=== PATIENT | male | born 1965 | race Caucasian/White ===

== ENCOUNTER → 2018-08-01 | Outpatient (CLI) | payer OTHER ==
[~2018-08-01] MED LIST: ACYC800 PO; ALBU90OI; ALLO100 PO; ASPI325; ASPI325 PO; ASPI81EC; ATOR40TA; AZIT500 PO; BUME2 PO; CARV25 PO; CEPH500 PO; CHOL10002 PO; CODGUAEL PO; FURO40; FURO40 PO; GABA100; GABA300 PO; GLIP5 PO; HUMALIN N; HYDACE5 PO; Hair, Skin & N1 EACH PO; INSULANI; INSULANPEN SC; INSULIN REGULAR SC; IRON PO; LISI10; LISI20 PO; LISI5 PO; METF500; METF500 PO; METF500C; OXYC15ER PO; OXYC5 PO; PARI1 PO; POTA10T; POTA10T PO; PRAV20 PO; PRED20 PO; RAMI2.5; RANI150; ROSI4; SULTRIDS; SULTRIDS PO; TRADJENTA5 MG PO; [UNRECOGNIZED DRUG - OTHER]
== END | disposition home or self-care (01) ==
LOC: LAB EV 12:47 → LAB SHORT 12:47
DX: L03.032 Cellulitis of left toe (principal)
CPT/HCPCS: 87070; 87077; 87147; 87186; 87205

== ENCOUNTER 2018-11-06 08:28 | Day surgery (SDC) | payer OTHER ==
[~2018-11-06] VITALS: Ht 170.2 cm; Wt 183.0 kg
[~2018-11-06 08:28] MED LIST changes: +Ferrous Sulfat325 M2 PO; +TOUJEO SOL300 UNIT/1 SC
== END 2018-11-06 13:30 | disposition home or self-care (01) ==
LOC: MHTC 08:28
PROC: 0JH609Z Insertion of Cardiac Resynchronization Defibrillator Pulse Generator into Chest Subcutaneous Tissue and Fascia, Open Approach (ICD-10-PCS; principal; 2018-11-06)
PROC: 0JPT0PZ Removal of Cardiac Rhythm Related Device from Trunk Subcutaneous Tissue and Fascia, Open Approach (ICD-10-PCS; principal; 2018-11-06)
DX: Z45.02 Encounter for adjustment and management of automatic implantable cardiac defibrillator (principal); I51.9 Heart disease, unspecified; I42.0 Dilated cardiomyopathy; H52.03 Hypermetropia, bilateral; I12.9 Hypertensive chronic kidney disease with stage 1 through stage 4 chronic kidney disease, or unspecified chronic kidney disease; N18.9 Chronic kidney disease, unspecified; I44.7 Left bundle-branch block, unspecified; E66.01 Morbid (severe) obesity due to excess calories; E11.22 Type 2 diabetes mellitus with diabetic chronic kidney disease
CPT/HCPCS: 33264; 82947; 99152; 99153; C1781; C1882; J1644; J2250; J3010; J7030; J7040

== ENCOUNTER → 2019-05-22 | Outpatient (CLI) | payer OTHER ==
[2019-05-22 17:35] LABS: BASOPHILS ABSOLUTE AUTO 0.03 K/mm3 (0.00-0.23); BASOPHILS PERCENT AUTO 1 % (0-2); EOSINOPHILS PERCENT AUTO 4 % (0-6); Hemoglobin 11.4 g/dL (13.5-17.5); IMMATURE GRAN ABSOLUTE AUTO 0.02 K/mm3 (0.00-0.10); IMMATURE GRAN PERCENT AUTO 0 % (0-1); LYMPHOCYTES ABSOLUTE AUTO 1.29 K/mm3 (0.84-5.20); LYMPHOCYTES PERCENT AUTO 24 % (21-46); MONOCYTES ABSOLUTE AUTO 0.95 K/mm3 (0.16-1.47); MONOCYTES PERCENT AUTO 17 % (4-13); Mean Corpuscular HGB 30.2 pg (26.0-34.0); Mean Corpuscular HGB Conc 33.5 g/dL (31.5-36.5); Mean Corpuscular Volume 90 fL (80-100); Mean Platelet Volume 11.9 fL (9.1-12.4); NEUTROPHILS ABSOLUTE AUTO 2.96 K/mm3 (1.96-9.15); NEUTROPHILS PERCENT AUTO 54 % (41-73); Platelet Count 53 K/mm3 (150-400); RDW Coefficient Variation 17.1 % (11.7-14.2); Red Blood Cell Count 3.77 M/mm3 (4.30-5.90); White Blood Cell Count 5.45 K/mm3 (4.00-11.30)
[2019-05-22 17:46] LABS: Bun/Creatinine Ratio 17.1 (12.0-20.0); Calcium, Blood 9.3 mg/dL (8.5-10.1); Creatinine, Blood 1.64 mg/dL (0.60-1.20); Potassium, Blood 4.4 mmol/L (3.5-5.5); Uric Acid, Blood 10.7 mg/dL (3.5-7.2)
== END ==
LOC: LAB EV 17:30 → LAB SHORT 17:30
PROVIDERS: Nurse Practitioner
DX: M25.522 Pain in left elbow (principal)
CPT/HCPCS: 80048; 84550; 85025

== ENCOUNTER 2019-11-23 15:47 | Emergency (ER) | payer OTHER ==
[~2019-11-23] VITALS: Ht 172.7 cm; Wt 174.6 kg
[2019-11-23] MEDS ORDERED: Augmentin 875-1 EACH PO (17:41)
[2019-11-23] MEDS ORDERED: Sulfamethoxazo1 EAC4 (17:41)
== END 2019-11-23 18:31 | disposition home or self-care (01) ==
LOC: ER 15:47
DX: L03.116 Cellulitis of left lower limb (principal); I12.9 Hypertensive chronic kidney disease with stage 1 through stage 4 chronic kidney disease, or unspecified chronic kidney disease; E11.22 Type 2 diabetes mellitus with diabetic chronic kidney disease; N18.9 Chronic kidney disease, unspecified; G47.30 Sleep apnea, unspecified; Z99.89 Dependence on other enabling machines and devices; Z79.899 Other long term (current) drug therapy; Z79.4 Long term (current) use of insulin
CPT/HCPCS: 93971; 99283-25

== ENCOUNTER 2021-10-31 17:02 | Inpatient (IN) | payer OTHER ==
[~2021-10-31] VITALS: Ht 175.3 cm; Wt 142.8 kg
[~2021-10-31 17:02] MED LIST changes: -TRULICITY3 MG/0.5 M SC
[2021-10-31 17:33] LABS: BASOPHILS ABSOLUTE AUTO 0.02 K/mm3 (0.00-0.23); BASOPHILS PERCENT AUTO 0 % (0-2); EOSINOPHILS ABSOLUTE AUTO 0.01 K/mm3 (0.00-0.68); EOSINOPHILS PERCENT AUTO 0 % (0-6); Hematocrit 36.8 % (37.0-53.0); Hemoglobin 11.3 g/dL (13.5-17.5); IMMATURE GRAN ABSOLUTE AUTO 0.12 K/mm3 (0.00-0.10); IMMATURE GRAN PERCENT AUTO 2 % (0-1); LYMPHOCYTES ABSOLUTE AUTO 0.79 K/mm3 (0.84-5.20); LYMPHOCYTES PERCENT AUTO 14 % (21-46); MONOCYTES PERCENT AUTO 9 % (4-13); Mean Corpuscular HGB 30.6 pg (26.0-34.0); Mean Corpuscular HGB Conc 30.7 g/dL (31.5-36.5); Mean Corpuscular Volume 100 fL (80-100); NEUTROPHILS PERCENT AUTO 75 % (41-73); RDW Coefficient Variation 17.3 % (11.7-14.2); RDW Standard Deviation 63.9 fL (35.1-46.3); Red Blood Cell Count 3.69 M/mm3 (4.30-5.90); White Blood Cell Count 5.84 K/mm3 (4.00-11.30)
[2021-10-31 17:38] LABS: Platelet Count 33 K/mm3 (150-400)
[2021-10-31 17:56] LABS: Albumin, Blood 2.8 g/dL (3.4-5.0); Albumin/Globulin Ratio 0.8 (0.8-1.8); Bilirubin, Total 0.6 mg/dL (0.1-1.0); Bun/Creatinine Ratio 8.9 (12.0-20.0); Creatinine, Blood 7.9 mg/dL (0.60-1.20); Globulin, Blood 3.7 g/dL (2.2-4.0); Total Protein, Blood 6.5 g/dL (6.4-8.2)
[2021-10-31 17:58] LABS: Potassium, Blood 6.9 mmol/L (3.5-5.5)
[2021-10-31 20:18] LABS: Salicylate 2.1 mg/dL (2.8-20.0)
[2021-10-31 20:19] LABS: Beta-hydroxybutyrate 96.8 mg/dL (0.2-2.8)
[2021-10-31 21:03] LABS: Base Excess Venous -23.6 mmol/L; Bicarbonate Venous 8.7 mmol/L (24.0-30.0); PCO2 Venous 30.5 mmHg (38-42); PO2 Venous 121 mmHg (38-42)
[2021-10-31 21:05] LABS: pH Blood Venous 7.01 (7.34-7.37)
[2021-10-31 21:18] LABS: Influenza A, PCR NEGATIVE (NEGATIVE); Influenza B, PCR NEGATIVE (NEGATIVE); Resp Syncytial Virus, PCR NEGATIVE (NEGATIVE); SARS-Cov-2 (COVID-19) PCR, MMC NEGATIVE (NEGATIVE)
[2021-10-31 22:30] LABS: Albumin, Blood 2.7 g/dL (3.4-5.0); Anion Gap 26 mmol/L (6-16); Blood Urea Nitrogen 73 mg/dL (8-24); Bun/Creatinine Ratio 9.3 (12.0-20.0); CO2, Blood 9 mmol/L (21-32); Calcium, Blood 8.6 mg/dL (8.5-10.1); Chloride, Blood 105 mmol/L (98-108); Creatinine, Blood 7.89 mg/dL (0.60-1.20); Glomerular Filtration Rate 7 (60-); Glucose, Blood 209 mg/dL (70-99); Potassium, Blood 6.6 mmol/L (3.5-5.5); Sodium, Blood 140 mmol/L (136-145)
[2021-10-31 22:53] LABS: Phosphorus, Blood >9.0 mg/dL (2.5-4.9)
[2021-10-31 23:22] LABS: International Normalized Ratio 1.42; Prothrombin Time Results 14.6 Sec (9.7-11.5)
[2021-10-31] MEDS ORDERED: TRULICITY3 MG/0.5 M SC (23:52)
--- NOTE | 2021-11-01 | NUR ---
PT ADMITTED TO ROOM ICU 01 FROM ED AT 2250. PT PIVOT TRANSFERS FROM [facility] TO BED WITH STANDBY ASSIST. PT ALERT AND ORIENTED. GOOD HISTORIAN. LEVOPHED UPON ADMIT WAS 5 MCG'S/MIN. BLOOD PRESSURES WITH MAP APPROX 60. WILL TITRATE NEEDED. HAVE STARTED 20 GAUGE IV IN LEFT FOREARM. PT TOLERATES WELL. POST VOID SCAN REVEALS NO RESIDUALS. DR HARGROVE HAS COME IN TO SEE PT. ORDERS RECEIVED. WILL REVIEW CHART AND PLAN OF CARE FOR THIS PT.
[2021-11-01 00:49] LABS: Albumin, Blood 2.8 g/dL (3.4-5.0); Anion Gap 25 mmol/L (6-16); Blood Urea Nitrogen 75 mg/dL (8-24); Bun/Creatinine Ratio 9.2 (12.0-20.0); CO2, Blood 12 mmol/L (21-32); Calcium, Blood 8.6 mg/dL (8.5-10.1); Chloride, Blood 104 mmol/L (98-108); Creatinine, Blood 8.17 mg/dL (0.60-1.20); Glomerular Filtration Rate 7 (60-); Glucose, Blood 200 mg/dL (70-99); Phosphorus, Blood 9.3 mg/dL (2.5-4.9); Potassium, Blood 7.1 mmol/L (3.5-5.5); Sodium, Blood 141 mmol/L (136-145)
[2021-11-01 05:45] LABS: BASOPHILS ABSOLUTE AUTO 0.04 K/mm3 (0.00-0.23); BASOPHILS PERCENT AUTO 0 % (0-2); EOSINOPHILS ABSOLUTE AUTO 0.03 K/mm3 (0.00-0.68); EOSINOPHILS PERCENT AUTO 0 % (0-6); Hematocrit 36.1 % (37.0-53.0); Hemoglobin 11.6 g/dL (13.5-17.5); IMMATURE GRAN ABSOLUTE AUTO 0.22 K/mm3 (0.00-0.10); IMMATURE GRAN PERCENT AUTO 2 % (0-1); LYMPHOCYTES ABSOLUTE AUTO 1.79 K/mm3 (0.84-5.20); LYMPHOCYTES PERCENT AUTO 16 % (21-46); MONOCYTES PERCENT AUTO 16 % (4-13); Mean Corpuscular HGB 30.9 pg (26.0-34.0); Mean Corpuscular HGB Conc 32.1 g/dL (31.5-36.5); Mean Corpuscular Volume 96 fL (80-100); NEUTROPHILS ABSOLUTE AUTO 7.55 K/mm3 (1.96-9.15); NEUTROPHILS PERCENT AUTO 66 % (41-73); RDW Coefficient Variation 17.3 % (11.7-14.2); RDW Standard Deviation 61.1 fL (35.1-46.3); Red Blood Cell Count 3.76 M/mm3 (4.30-5.90); White Blood Cell Count 11.43 K/mm3 (4.00-11.30)
[2021-11-01 05:53] LABS: Magnesium, Blood 1.9 mg/dL (1.6-2.4)
[2021-11-01 05:56] LABS: Mean Platelet Volume 13.2 fL (9.1-12.4); Platelet Count 48 K/mm3 (150-400)
--- NOTE | 2021-11-01 06:30 | NUR ---
LABS CALLED TO DR HARGROVE THIS AM. ORDERS RECEIVED. PT HAS HAD LEVOPHED THAT HAS BEEN TITRATED TO 7 MCG'S/MIN AND HAS BEEN TITRATED BACK TO 5 MCG'S/MIN. PT DENIES PAIN. PT HAS OFFERED NO COMPLAINTS THIS SHIFT. WILL CONTINUE TO MONITOR PT, AND WILL REPORT OFF TO ONCOMING RN.
[2021-11-01 06:48] LABS: Alanine Aminotransfer (ALT/SGP 23 U/L (12-78); Albumin, Blood 2.7 g/dL (3.4-5.0); Albumin/Globulin Ratio 0.8 (0.8-1.8); Alk Phos 70 U/L (50-136); Anion Gap 27 mmol/L (6-16); Aspartate Aminotrans (AST/SGOT 23 U/L (12-37); Bilirubin, Total 0.7 mg/dL (0.1-1.0); Blood Urea Nitrogen 73 mg/dL (8-24); Bun/Creatinine Ratio 9.2 (12.0-20.0); CO2, Blood 14 mmol/L (21-32); Calcium, Blood 7.9 mg/dL (8.5-10.1); Chloride, Blood 102 mmol/L (98-108); Globulin, Blood 3.2 g/dL (2.2-4.0); Glomerular Filtration Rate 7 (60-); Glucose, Blood 162 mg/dL (70-99); Phosphorus, Blood 8.4 mg/dL (2.5-4.9); Potassium, Blood 7.3 mmol/L (3.5-5.5); Sodium, Blood 143 mmol/L (136-145); Total Protein, Blood 5.9 g/dL (6.4-8.2)
[2021-11-01 08:42] LABS: Base Excess Venous -13.3 mmol/L; Bicarbonate Venous 14.4 mmol/L (24.0-30.0); PCO2 Venous 35.9 mmHg (38-42); pH Blood Venous 7.22 (7.34-7.37)
[2021-11-01 09:46] LABS: Source, Urine Catheter
[2021-11-01 09:48] LABS: Bilirubin, Urine Neg (Neg); Blood, Urine 5+ (Neg); Glucose Qualitative, Urine 3+ (Neg); Ketones, Urine 3+ (Neg); Leukocyte Esterase, Urine 2+ (Neg); Nitrite, Urine Neg (Neg); Protein, Urine 2+ (Neg); Specific Gravity, Urine 1.015 (1.003-1.022); Urobilinogen, Urine NORM (Normal)
[2021-11-01 09:50] LABS: Albumin, Blood 2.5 g/dL (3.4-5.0); Anion Gap 27 mmol/L (6-16); Blood Urea Nitrogen 79 mg/dL (8-24); CO2, Blood 14 mmol/L (21-32); Calcium, Blood 7.8 mg/dL (8.5-10.1); Chloride, Blood 100 mmol/L (98-108); Glucose, Blood 218 mg/dL (70-99); Sodium, Blood 141 mmol/L (136-145)
[2021-11-01 09:52] LABS: Bun/Creatinine Ratio 9.7 (12.0-20.0); Glomerular Filtration Rate 7 (60-)
[2021-11-01 09:53] LABS: Creatinine, Blood 8.12 mg/dL (0.60-1.20); Phosphorus, Blood 8.3 mg/dL (2.5-4.9)
--- NOTE | 2021-11-01 10:00 | NUR ---
Provider call - Dr. Hernandez Ng called in regards to lab results. New orders recieved, see emar.
--- NOTE | 2021-11-01 10:00 | NUR ---
Care Assumed 0700 Levophed GTT, MAP > 65, infusing via left AC IV. Pt A/O X 4, states correct location, event, and date/year. Calm/cooperative. On RA, SPO2 > 90%. BT hypoactive. Temp parr placed, per Dr. Segundo for strict I/O's. Pt tolerated well, UA sample sent.
[2021-11-01 10:01] LABS: Appearance, Urine Hazy (Clear); Bacteria Rare /hpf; Color, Urine Yellow (P-Yellow); Squamous Epithelial Cells Rare /hpf (Few); Yeast/Fungi Urine Few /hpf
--- NOTE | 2021-11-01 11:40 | NUR ---
Update- Provider Visit Dr. Segundo in to see patient. New orders recieved for 1 unit plt, 1 amp dextrose , and 10 units of regular insulin IV. And 1 L bolus of LR. Pt is A/O X 4, able to start correct date/year, location, and event. On RA, SPO2 > 90%. Remains on levophed @ 2 mcg/kg/min, MAP > 65.
[2021-11-01 13:11] LABS: Creatinine, Blood 7.98 mg/dL (0.60-1.20); Potassium, Blood 6.5 mmol/L (3.5-5.5)
--- NOTE | 2021-11-01 13:20 | NUR ---
Initial Interview with [facility] Community Wage And Hour Investigator 1. Who did you speak with? Spoke with patient 2. What is the patient's prior level of functions? Independent lives with his and daughter Sasha. Patient does not use any DME for walking assistance; patient does use a CPAP at night. Patient able to perform most chores around the house with the help of his and daughter; they assist with cooking and housekeeping as needed. 3. What is the patient's current living situation? Patient lives with independently with his and daughter. 4. 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 Yes, patient able to drive and has his own transportation. 5. Does patient still drive? Yes, patient able to drive and has transportation. 6. POA/PCP/NOK: PCP-Dr. Hernandez/[facility] Thi/daughter Kami (patient has three daughters who live local) 7. Discharge goals: TBD -Home: TBD -DME: TBD -Medication Management: self-management/patient is on dialysis -Preferred Pharmacy: [facility] -Housekeeping need: and daughter assists -Cooking: and daughter assists 8. List barriers to discharge: None known at this time 9. Discharge Plan: TBD/continue dialysis schedule 10. PCP Follow up appointment: Will be scheduled within seven calendar days of 11. Patient is not a .
--- NOTE | 2021-11-01 14:00 | NUR ---
Update- Labs/provider visit Dr. Segundo at bedside around 1300 and updated on critical labs. New orders recieved for BMP at 1700 and LR @ 1600 with 300 ml/hr rate. Pt denies pain at this time and updated on current care plan. Spoke to patients daughter, Nevaeh [phone], and updated on current treatment/care being provided. VSS. pt remains on levophed gtt 1 mcg/kg/min.
--- NOTE | 2021-11-01 17:36 | NUR ---
Shift Summary Levophed on SB, MAP > 65. Pt remains A/O X 4. On RA, spo2 > 95%. Denies nausea or pain. Johnson in place with dark cloudy sediment yellow urine. Pts daughter at bedside and updated on care being provided. VSS. Waiting on BMP results to determine HD cath placement per Dr. Segundo. Provider to be called with results once they arrive. SCD's in place. Will report to nightshift.
[2021-11-01 17:43] LABS: Bun/Creatinine Ratio 10.6 (12.0-20.0); Calcium, Blood 7.4 mg/dL (8.5-10.1); Creatinine, Blood 7.99 mg/dL (0.60-1.20); Potassium, Blood 5.8 mmol/L (3.5-5.5)
--- NOTE | 2021-11-01 18:07 | NUR ---
Provider update - Dr. Ng and Spoke to Dr. Segundo and updated on current labs, recieved new orders for LR. NPO status changed to ADA diet. Spoke to Dr. Ng and recieved new orders for 1/NS with Bicarb, see emar. No other changes in patient.
--- NOTE | 2021-11-01 19:30 | NUR ---
ASSUMPTION OF CARE: PT ALERT AND ORIENTED X4 AT TIME OF SHIFT CHANGE. IV SL W/NOTHING INFUSING-LEVOPHED ON HOLD, WAITING ON BICARB DRIP FROM PHARMACY. PT IS ON ROOM AIR, DENIES ANY PAIN/DISTRESS/DISCOMFORT AND NONE NOTED AT TIME OF SHIFT CHANGE.
--- NOTE | 2021-11-01 21:55 | NUR ---
PT WOKE UP AND STATED SHE WAS IN PAIN. MEDICATION GIVEN; SEE EMAR. PT IS NOW RESTING COMFORTABLY WITH EYES CLOSED. SON AT BEDSIDE.
[2021-11-02 03:34] LABS: BASOPHILS ABSOLUTE AUTO 0.02 K/mm3 (0.00-0.23); BASOPHILS PERCENT AUTO 0 % (0-2); EOSINOPHILS ABSOLUTE AUTO 0.05 K/mm3 (0.00-0.68); EOSINOPHILS PERCENT AUTO 1 % (0-6); Hematocrit 33.6 % (37.0-53.0); Hemoglobin 11.4 g/dL (13.5-17.5); IMMATURE GRAN ABSOLUTE AUTO 0.03 K/mm3 (0.00-0.10); IMMATURE GRAN PERCENT AUTO 0 % (0-1); LYMPHOCYTES ABSOLUTE AUTO 0.55 K/mm3 (0.84-5.20); LYMPHOCYTES PERCENT AUTO 6 % (21-46); MONOCYTES ABSOLUTE AUTO 1.64 K/mm3 (0.16-1.47); MONOCYTES PERCENT AUTO 19 % (4-13); Mean Corpuscular HGB 30.6 pg (26.0-34.0); Mean Corpuscular HGB Conc 33.9 g/dL (31.5-36.5); Mean Platelet Volume 11.7 fL (9.1-12.4); NEUTROPHILS ABSOLUTE AUTO 6.37 K/mm3 (1.96-9.15); NEUTROPHILS PERCENT AUTO 74 % (41-73); RDW Standard Deviation 56.1 fL (35.1-46.3); Red Blood Cell Count 3.72 M/mm3 (4.30-5.90); White Blood Cell Count 8.66 K/mm3 (4.00-11.30)
[2021-11-02 03:38] LABS: Mean Corpuscular Volume 90 fL (80-100); Platelet Count 50 K/mm3 (150-400)
[2021-11-02 04:21] LABS: Magnesium, Blood 1.8 mg/dL (1.6-2.4)
[2021-11-02 04:30] LABS: Albumin, Blood 2.6 g/dL (3.4-5.0); Anion Gap 17 mmol/L (6-16); Blood Urea Nitrogen 92 mg/dL (8-24); Bun/Creatinine Ratio 10.9 (12.0-20.0); CO2, Blood 25 mmol/L (21-32); Calcium, Blood 7.1 mg/dL (8.5-10.1); Chloride, Blood 102 mmol/L (98-108); Creatinine, Blood 8.43 mg/dL (0.60-1.20); Glomerular Filtration Rate 7 (60-); Glucose, Blood 222 mg/dL (70-99); Phosphorus, Blood 7.7 mg/dL (2.5-4.9); Potassium, Blood 5.2 mmol/L (3.5-5.5); Sodium, Blood 144 mmol/L (136-145)
--- NOTE | 2021-11-02 05:58 | NUR ---
SHIFT SUMMERY: PT IS ALERT AND ORIENTED, LEVOPHED REMAINED OFF THE ENTIRE SHIFT WITH PT MAINTAINING MAPS >65. BICARB GTT INFUSING PER MD ORDER. DR HARGROVE DISCUSSED WITH PT PLAN OF CARE AT BEDSIDE AT APPX 0545AM. PT HAS HAD NO ACUTE DISTRESS THROUGHOUT THE NIGHT, VS HAVE REMAINED STABLE; AFEBRILE.
--- NOTE | 2021-11-02 08:25 | NUR ---
ASSUMED CARE REPORT FROM AYAH LANDIN AT 0700. PT RESTING IN BED. A&OX 4. FOLLOWS COMMANDS. TOLERATED BREAKFAST WELL. DENIES N/V/D. ABD OBESE, SOFT, TENDER ON RIGHT SIDE. BT X 4. SR c BBB, RATE 80'S. BP STABLE. LUNGS CLEAR. ON RA. ARAIZA PATENT, DRAINING CLOUDY YELLOW URINE TO GRAVITY. PIV X 2. WILL CONTINUE TO MONITOR.
--- NOTE | 2021-11-02 16:58 | NUR ---
SHIFT SUMMARY NO ACUTE CHANGES THIS SHIFT. STATUS CHANGED TO PCU. NORMOTENSIVE. IVF CHANGED TO NS AT 50 ML/HR. WORKED c PT/OT THIS SHIFT. TOLERATED WELL. ABD PAIN RELIEVED c TYLENOL. VSS. ARAIZA PATENT, DRAINING CLOUDY YELLOW URINE c HEAVY SEDIMENT TO GRAVITY, 350 ML OUT THIS SHIFT. WILL CONTINUE TO MONITOR UNTIL REPORT TO ONCOMING NURSE.
--- NOTE | 2021-11-02 20:00 | NUR ---
ASSUMED CARE OF PT AT 1915. REPORT RECEIVED AT BEDSIDE. PT PRESENTS IN BED. ALERT AND ORIENTED. PLEASANT AND COOPERATIVE WITH CARE AND ASSESSMENT. PT DENIES COMPLAINTS AT THIS TIME. WILL REVIEW CHART AND PLAN OF CARE FOR THIS PT.
--- NOTE | 2021-11-03 | NUR ---
DID OPT TO PLACE OXYGEN AT 2 L/M FOR NOTED DROPS IN OXYGEN SATURATIONS INTO 85-87 PERCENT WHILE SLEEPING. PT DOES STATE THAT HE WEARS CPAP AT HOME. THIS AFFECTIVE IN KEEPING SATURATIONS > 90 PERCENT. WILL CONTINUE TO MONITOR.
[2021-11-03 03:22] LABS: BASOPHILS ABSOLUTE AUTO 0.01 K/mm3 (0.00-0.23); BASOPHILS PERCENT AUTO 0 % (0-2); EOSINOPHILS ABSOLUTE AUTO 0.09 K/mm3 (0.00-0.68); EOSINOPHILS PERCENT AUTO 2 % (0-6); Hematocrit 34.8 % (37.0-53.0); Hemoglobin 11.7 g/dL (13.5-17.5); IMMATURE GRAN ABSOLUTE AUTO 0.02 K/mm3 (0.00-0.10); IMMATURE GRAN PERCENT AUTO 0 % (0-1); LYMPHOCYTES ABSOLUTE AUTO 0.64 K/mm3 (0.84-5.20); LYMPHOCYTES PERCENT AUTO 11 % (21-46); MONOCYTES ABSOLUTE AUTO 1.52 K/mm3 (0.16-1.47); MONOCYTES PERCENT AUTO 26 % (4-13); Mean Corpuscular HGB 30.3 pg (26.0-34.0); Mean Corpuscular HGB Conc 33.6 g/dL (31.5-36.5); Mean Corpuscular Volume 90 fL (80-100); NEUTROPHILS ABSOLUTE AUTO 3.69 K/mm3 (1.96-9.15); NEUTROPHILS PERCENT AUTO 62 % (41-73); RDW Coefficient Variation 16.5 % (11.7-14.2); Red Blood Cell Count 3.86 M/mm3 (4.30-5.90); White Blood Cell Count 5.97 K/mm3 (4.00-11.30)
[2021-11-03 03:32] LABS: Platelet Count 31 K/mm3 (150-400)
[2021-11-03 04:15] LABS: Magnesium, Blood 1.4 mg/dL (1.6-2.4)
[2021-11-03 04:20] LABS: Albumin, Blood 2.4 g/dL (3.4-5.0); Anion Gap 12 mmol/L (6-16); Blood Urea Nitrogen 94 mg/dL (8-24); CO2, Blood 33 mmol/L (21-32); Chloride, Blood 98 mmol/L (98-108); Creatinine, Blood 8.51 mg/dL (0.60-1.20); Glomerular Filtration Rate 7 (60-); Glucose, Blood 198 mg/dL (70-99); Phosphorus, Blood 6.3 mg/dL (2.5-4.9); Potassium, Blood 3.9 mmol/L (3.5-5.5); Sodium, Blood 143 mmol/L (136-145)
--- NOTE | 2021-11-03 06:30 | NUR ---
PT AWAKENS EASILY WITH ANY CARE. VSS THROUGH THE NIGHT. HAS GOOD URINARY OUTPUT THIS MORNING. 550 ML. PT DENIES COMPLAINTS. HAS MAINTAINED > 90 PERCENT WITH OXYGEN PER NASAL CANNULA. WILL CONTINUE TO MONITOR PT, AND WILL REPORT OFF TO ONCOMING RN.
--- NOTE | 2021-11-03 07:37 | NUR ---
ASSUMED CARE: PT AWAKE, WATCHING TV WHILE LAYING IN BED. NSR WITH BBB AT THIS TIME. DR HARGROVE CAME TO SEE PT AND WANTS REPEAT LABS AND TO BE CALLED WITH RESULTS. ORDER IN PLACE. NO ACUTE NEEDS AT THIS TIME.
--- NOTE | 2021-11-03 15:04 | NUR ---
CALL TO DR ALVARADO TO UPDATE ON PT'S STATUS. WANTS TO KEEP PCU STATUS FOR NOW DUE TO CRITICAL LABS. DR HARGROVE AWARE OF CREATININE WELL. DR ALVARADO AWARE OF HOMAR IN UA. NO ORDERS AT THIS TIME.
--- NOTE | 2021-11-03 16:17 | NUR ---
PT'S EXPRESSED CONCERN ABOUT COREG ORDERS. SHOWED PT'S VITALS THAT TODAY IS THER FIRST DAY HE HAS CONSISTENTLY HAD NORMAL BPS. SPOKE WITH DR ALVARADO WHO ORDERED COREG TO START TOMORROW AM.
--- NOTE | 2021-11-03 18:15 | NUR ---
SHIFT SUMMARY: PT RESTING QUIETLY IN BED, FAMILY CAME BY TO SEE PT. DR HARGROVE MONITORING PT AND CONSULTING. CRITICAL CREATININE AND PLATELETS, WHICH IS WHY PT IS PCU STATUS. DR HARGROVE TO MONITOR CREATININE AND DETERMINE IF DIALYSIS CATH NEEDED. NO ACUTE NEEDS AT THIS TIME.
--- NOTE | 2021-11-03 20:48 | NUR ---
ASSUMED CARE PT A&OX3, AFEBRILE, DENIES ANY PAIN AT THIS TIME. ON ROOM AIR, SPO2 >02%, LUNGS CLEAR THROUGHOUT. PT HAS PERMANENT PACEMAKER, SINUS RHYTHM WITH BBB, RATE IN 80'S, BP NORMOTENSIVE. ABDOMEN OBESE AND SOFT, BOWEL TONES X4. ARAIZA PATENT AND DRAINING CLOUDY, YELLOW URINE WITH SEDIMENT. SKIN OVERALL C/D/I, EDEMA 2+ TO BLE. RIGHT FOREARM 20G IV, INFUSING NS AT 50ML/HR; LEFT WRIST 20G, PATENT WITH BLOOD RETURN. ORDERS REVIEWED AND WILL TREAT PRESCRIBED.
[2021-11-04 04:55] LABS: BASOPHILS ABSOLUTE AUTO 0.01 K/mm3 (0.00-0.23); BASOPHILS PERCENT AUTO 0 % (0-2); EOSINOPHILS ABSOLUTE AUTO 0.15 K/mm3 (0.00-0.68); EOSINOPHILS PERCENT AUTO 3 % (0-6); Hematocrit 34.1 % (37.0-53.0); Hemoglobin 11.3 g/dL (13.5-17.5); IMMATURE GRAN ABSOLUTE AUTO 0.02 K/mm3 (0.00-0.10); IMMATURE GRAN PERCENT AUTO 0 % (0-1); LYMPHOCYTES ABSOLUTE AUTO 0.54 K/mm3 (0.84-5.20); LYMPHOCYTES PERCENT AUTO 10 % (21-46); MONOCYTES ABSOLUTE AUTO 1.21 K/mm3 (0.16-1.47); MONOCYTES PERCENT AUTO 23 % (4-13); Mean Corpuscular HGB 30.4 pg (26.0-34.0); Mean Corpuscular HGB Conc 33.1 g/dL (31.5-36.5); Mean Corpuscular Volume 92 fL (80-100); Mean Platelet Volume 11.7 fL (9.1-12.4); NEUTROPHILS ABSOLUTE AUTO 3.32 K/mm3 (1.96-9.15); NEUTROPHILS PERCENT AUTO 63 % (41-73); RDW Standard Deviation 53.6 fL (35.1-46.3); Red Blood Cell Count 3.72 M/mm3 (4.30-5.90); White Blood Cell Count 5.25 K/mm3 (4.00-11.30)
[2021-11-04 05:11] LABS: Platelet Count 31 K/mm3 (150-400)
[2021-11-04 05:50] LABS: Albumin, Blood 2.3 g/dL (3.4-5.0); Anion Gap 11 mmol/L (6-16); Blood Urea Nitrogen 87 mg/dL (8-24); CO2, Blood 31 mmol/L (21-32); Calcium, Blood 7.2 mg/dL (8.5-10.1); Chloride, Blood 98 mmol/L (98-108); Creatinine, Blood 7.28 mg/dL (0.60-1.20); Glomerular Filtration Rate 8 (60-); Glucose, Blood 213 mg/dL (70-99); Magnesium, Blood 1.7 mg/dL (1.6-2.4); Phosphorus, Blood 4.9 mg/dL (2.5-4.9); Potassium, Blood 3.5 mmol/L (3.5-5.5); Sodium, Blood 140 mmol/L (136-145)
--- NOTE | 2021-11-04 05:57 | NUR ---
PT REMAINED A/OX4 T/O SHIFT, PLEASANT AND COOPERATIVE. AFEBRILE AND DENIED PAIN. REMAINS ON ROOM AIR. SR W/ BBB, RATE IN 70-80'S, VSS. NO NAUSEA OR VOMITING. ARAIZA PATENT, DRAINING CLOUDY YELLOW URINE WITH SEDIMENT, 1150 OUT THIS SHIFT. CREATININE MILDLY IMPROVED AT 7.28, GFR OF 8. NS CONTINUES AT 50ML/HR. WILL REPORT TO ONCOMING SHIFT.
--- NOTE | 2021-11-04 08:11 | NUR ---
AM NOTE.... ASSUMED CARE OF PT AT 0700, PT IS A&Ox4. THE PT WAS ADMITTED FOR KATHY, THE PT'S CONDITION IS SLOWLY IMPROVING. THE PT'S VS STABLE AT THIS TIME. THE PT IS ON RA WITH O2 SATS >90% L/S CLEAR T/O. THE PT IS IN SR W/BBB IN THE 80'S, HE HAS 2+ EDEMA NOTED TO HIS BLE. PAS TO HIS BLE REMOVED PER PT'S REQUEST FOR A BREAK. BT PRESENT AND HYPOACTIVE, ABD IS SOFT AND A LITTLE TENDER TO PALP. PT IS C/O OF AN "UP SET TUMMY" PT WAS MEDICATED WITH ZOFRAN FOR THIS . PT IS ALSO C/O OF BEING CONSITPATED, HIS LAST BM WAS ON THE 16. THE PT'S ARAIZA IS PATENT AND DRAINING TO GRAVITY. DURING REPORT FROM NOC SHIFT RN THE PT'S O2 SATS DROPPED DOWN TO THE LOW 70%, UPON ENTERING THE ROOM THE PT WOKE UP, 3L NC WAS PLACED ON THE PT AND HIS O2 SATS IMPROVED TO >98%. THE PT STATED HE WAS SUPPOSED TO BE USING A CPAP AT HOME FOR SLEEP APNEA. DR. ALVARADO AT THE BEDSIDE TO ASSESS THE PT THIS AM, NO NEW ORDERS AT THIS TIME. WILL CONTINUE TO MONITOR.
--- NOTE | 2021-11-04 17:35 | NUR ---
SHIFT SUMMARY.... NO ACUTE NEGATIVE CHANGES NOTED THIS SHIFT. THE PT WAS CHANGED TO MEDICAL STATUS WITH NO TELE. THE PT'S VS HAVE BEEN STABLE T/O THIS SHIFT. THE PT'S ARAIZA WAS D/C'd AT 1430, AT 1720 THE PT WAS ABLE TO USE THE URINAL AND VOID 200MLS. THE PT WAS ABLE TO USE A WALKER AND GET TO THE TOILET WITH MIN ASSIST,HE WAS UP IN THE CHAIR FOR SEVERAL HOURS THIS SHIFT AND WORKED WITH PT/OT. THE PT DENIES ANY N/V, SOB OR CHEST/ABD PAIN AT THIS TIME. CALL LIGHT IN REACH WILL CONTINUE TO MONITOR UNTIL REPORT IS GIVEN TO ONCOMING RN.
--- NOTE | 2021-11-04 19:58 | NUR ---
ASSUMED CARE OF PT AT 1900. HE IS A/O X4, AND RESTING IN BED. PT WAS CHANGED TO MEDICAL STATUS EARLIER TODAY AND KINDEY FUNCTION APPEARS TO BE IMPROVING. CATHETER WAS REMOVED AND PT USING URINAL AT BEDSIDE. VSS, ON ROOM AIR, AND TELEMETRY WAS DISCONTINUED. ORDERS REVIEWED AND WILL TREAT PRESCRIBED.
[2021-11-05 03:13] LABS: Hematocrit 30.7 % (37.0-53.0); Hemoglobin 10.2 g/dL (13.5-17.5)
[2021-11-05 03:30] LABS: Albumin, Blood 2.1 g/dL (3.4-5.0); Anion Gap 9 mmol/L (6-16); Blood Urea Nitrogen 84 mg/dL (8-24); Bun/Creatinine Ratio 13.9 (12.0-20.0); CO2, Blood 32 mmol/L (21-32); Calcium, Blood 7.8 mg/dL (8.5-10.1); Chloride, Blood 99 mmol/L (98-108); Creatinine, Blood 6.05 mg/dL (0.60-1.20); Glomerular Filtration Rate 10 (60-); Glucose, Blood 223 mg/dL (70-99); Magnesium, Blood 1.5 mg/dL (1.6-2.4); Phosphorus, Blood 4.4 mg/dL (2.5-4.9); Potassium, Blood 3.5 mmol/L (3.5-5.5); Sodium, Blood 140 mmol/L (136-145)
--- NOTE | 2021-11-05 06:27 | NUR ---
PT CONTINUES TO IMPROVE KIDNEY FUCTION. MAGNESIUM 1GM REPLACED THIS MORNING PER DR. HARGROVE. USING 2L NC WHEN SLEEPING TO MAINTAIN SPO2 >96%, OTHERWISE RA ONLY. USING BEDSIDE URINAL WITHOUT ASSISTANCE, OUTPUT THIS SHIFT 975ML. VSS, AFEBRILE. WILL REPORT TO ONCOMING SHIFT.
--- NOTE | 2021-11-05 08:00 | NUR ---
ASSUMED CARE ASSUMED CARE OF PT AT 1900. PT A/OX4, PLEASANT AND RESTING. VSS, ON ROOM AIR, NO TELEMETRY. PT USING URINAL WITHOUT ASSISTANCE. NS RUNNING IN LEFT WRIST PERIPHERAL AT 50ML/HR. ORDERS REVIEWED, WILL TREAT PRESCRIBED.
--- NOTE | 2021-11-05 09:18 | NUR ---
AM NOTE... ASSUMED CARE OF PT AT 0700, PT IS A&Ox4. THE PT'S VS STABLE THIS AM. PT DENIES ANY N/V OR ABD PAIN. THE PT IS A SBA TO THE TOILET ABLE TO USE THE WALKER. THE PT IS MOSTLY INDEPENDENT WITH HIS ADLs AT THIS TIME. THE PT USES THE URINAL IN THE BED INDEPENDENTLY. THE PT HAS 2+ EDEMA TO HIS BLE, L/S CLEAR T/O ON RA. BP STABLE. CALL LIGHT IN REACH WILL CONTINUE TO MONITOR.
--- NOTE | 2021-11-05 18:56 | NUR ---
SHIFT SUMMARY.... NO ACUTE NEGATIVE CHANGES NOTED THIS SHIFT. THE PT'S VS HAVE BEEN STABLE, PT IS SBA TO THE TOILET TO HAVE A BM. THE PT CONTINUES ON RA. THE PLAN IS TO D/C THE PT HOME TOMORROW. WILL CONTINUE TO MONITOR UNTIL REPORT IS GIVEN TO ONCOMING RN.
--- NOTE | 2021-11-05 23:00 | NUR ---
PT CALLED FOR ASSISTANCE TO USE THE TOILET. UPON RETURN, THERE WAS A MODERATE AMOUNT OF BLOOD IN THE TOILET AND ON THE PATIENT'S PERINEUM. PT STATED HE HAS HEMORRHOIDS; HOWEVER, UPON CLOSER INSPECTION, THE BLOOD WAS COMING FROM A SMALL TEAR IN HIS SCROTUM. A LILIANA PATCH WAS APPLIED ALONG WITH 4X4'S. RECHECKED THE AREA ONE HOUR LATER, AND BLEEDING APPEARS TO HAVE STOPPED.
[2021-11-06 03:57] LABS: BASOPHILS ABSOLUTE AUTO 0.01 K/mm3 (0.00-0.23); BASOPHILS PERCENT AUTO 0 % (0-2); EOSINOPHILS ABSOLUTE AUTO 0.15 K/mm3 (0.00-0.68); EOSINOPHILS PERCENT AUTO 4 % (0-6); Hematocrit 29.4 % (37.0-53.0); Hemoglobin 9.9 g/dL (13.5-17.5); IMMATURE GRAN ABSOLUTE AUTO 0.02 K/mm3 (0.00-0.10); IMMATURE GRAN PERCENT AUTO 1 % (0-1); LYMPHOCYTES ABSOLUTE AUTO 0.44 K/mm3 (0.84-5.20); LYMPHOCYTES PERCENT AUTO 13 % (21-46); MONOCYTES ABSOLUTE AUTO 0.91 K/mm3 (0.16-1.47); MONOCYTES PERCENT AUTO 26 % (4-13); Mean Corpuscular HGB 30.7 pg (26.0-34.0); Mean Corpuscular HGB Conc 33.7 g/dL (31.5-36.5); Mean Corpuscular Volume 91 fL (80-100); NEUTROPHILS PERCENT AUTO 57 % (41-73); RDW Coefficient Variation 15.5 % (11.7-14.2); RDW Standard Deviation 51.7 fL (35.1-46.3); Red Blood Cell Count 3.23 M/mm3 (4.30-5.90); White Blood Cell Count 3.53 K/mm3 (4.00-11.30)
[2021-11-06 04:18] LABS: Anion Gap 9 mmol/L (6-16); Blood Urea Nitrogen 74 mg/dL (8-24); Bun/Creatinine Ratio 15.2 (12.0-20.0); CO2, Blood 32 mmol/L (21-32); Calcium, Blood 7.6 mg/dL (8.5-10.1); Chloride, Blood 101 mmol/L (98-108); Creatinine, Blood 4.88 mg/dL (0.60-1.20); Glomerular Filtration Rate 12 (60-); Glucose, Blood 268 mg/dL (70-99); Magnesium, Blood 1.5 mg/dL (1.6-2.4); Phosphorus, Blood 4.2 mg/dL (2.5-4.9); Potassium, Blood 3.5 mmol/L (3.5-5.5); Sodium, Blood 142 mmol/L (136-145)
[2021-11-06 04:28] LABS: Mean Platelet Volume 12.4 fL (9.1-12.4); Platelet Count 34 K/mm3 (150-400)
--- NOTE | 2021-11-06 06:22 | NUR ---
PT SLEPT MOST OF SHIFT. NO MORE BLEEDING NOTED FROM SCROTUM, LILIANA AND GAUZE REMAINS IN PLACE. HE REMAINED A/OX4 WITH VSS, ON 2L NC WHILE SLEEPING. KIDNEY FUNCTION CONTINUES TO IMPROVE. WILL GIVE REPORT TO ONCOMING SHIFT.
--- NOTE | 2021-11-06 07:32 | NUR ---
AM NOTE... ASSUMED CARE OF PT AT 0700, PT IS A&Ox4. THE PT'S VS STABLE AT THIS TIME, THE PT DENIES ANY N/V, SOB, ABD PAIN OR SOB. THE PT IS 96% ON RA, L/S CLEAR T/O. THE PT HAS 2+ EDEMA NOTED TO HIS BLE. SCDs IN PLACE. THE PT IS ANXIOUS TO D/C HOME TODAY IF POSSIBLE. CALL LIGHT IN REACH WILL CONTINUE TO MONITOR.
--- NOTE | 2021-11-06 09:44 | NUR ---
PT UPDATE.... PER DR. HARGROVE THE PT IS OKAY TO D/C HOME AND FOLLOW UP WITH DR. HARGROVE IN THE CLINIC ON 11/08 AT 2PM. THE PT WAS UPDATED ON THIS AND IS ANXIOUS TO D/C HOME. WILL CONTINUE TO MONITOR.
--- NOTE | 2021-11-06 15:37 | NUR ---
PT D/C HOME... PT D/C HOME WITH DAUGHTER. PT IS TO FOLLOW UP WITH DR. HARGROVE ON 11/08 AT 2PM, PT VERBALIZED HIS UNDERSTANDING. ALL OF THE PT'S BELONGINGS PACKED AND SENT WIHT THE PT. THE PT'S IV WAS REMOVED WNL. THE PT DENIED ANY N/V, SOB, CHEST PAIN OR ABD PAIN.
--- NOTE | 2021-11-06 16:21 | NUR ---
Per Dr. Hernandez discharge appropriate on 11/06/21. Patient does not oppose. Patient scheduled for discharge to his residence with family. Transportation provided by family. DME: patient has CPAP; no new DME at this time. Patient has a strong support system to include his Thi and daughter Sasah. [facility] Transition of Care will contact patient to schedule hospital follow up appointment with PCP. Patient will contact [facility] if any questions concerning medication management or if condition worsens patient to go to Urgent Care. No barriers to discharge at this time.
== END 2021-11-06 15:08 | disposition home or self-care (01) | DRG 682 ==
LOC: ER 17:02 → ICUW 21:39 → ICUE 21:39
PROVIDERS: Emergency Medicine; Family Medicine; Internal Medicine Critical Care Medicine; Internal Medicine Nephrology; Student in an Organized Health Care Education/Training Program; ADMIT Internal Medicine
PROC: 3E033XZ Introduction of Vasopressor into Peripheral Vein, Percutaneous Approach (ICD-10-PCS; 2021-10-31)
PROC: 30233R1 Transfusion of Nonautologous Platelets into Peripheral Vein, Percutaneous Approach (ICD-10-PCS; principal; 2021-11-01)
DX: N17.9 Acute kidney failure, unspecified (principal); K85.90 Acute pancreatitis without necrosis or infection, unspecified; R57.8 Other shock; I50.32 Chronic diastolic (congestive) heart failure; I13.0 Hypertensive heart and chronic kidney disease with heart failure and stage 1 through stage 4 chronic kidney disease, or unspecified chronic kidney disease; I42.9 Cardiomyopathy, unspecified; E87.2 Acidosis; E87.3 Alkalosis; N39.0 Urinary tract infection, site not specified; Z20.822 Contact with and (suspected) exposure to COVID-19; N25.81 Secondary hyperparathyroidism of renal origin; E11.22 Type 2 diabetes mellitus with diabetic chronic kidney disease; E83.39 Other disorders of phosphorus metabolism; E83.42 Hypomagnesemia; K76.0 Fatty (change of) liver, not elsewhere classified; E78.5 Hyperlipidemia, unspecified; E87.5 Hyperkalemia; D69.6 Thrombocytopenia, unspecified; N18.30 Chronic kidney disease, stage 3 unspecified; D63.1 Anemia in chronic kidney disease; Z95.0 Presence of cardiac pacemaker; Z98.84 Bariatric surgery status; Z98.890 Other specified postprocedural states; Z79.4 Long term (current) use of insulin; Z79.899 Other long term (current) drug therapy
CPT/HCPCS: 0241U; 36415; 36430; 51702; 70450; 74176; 80048; 80053; 80069; 81001; 82010; 82565; 82803; 82947; 83605; 83690; 83735; 83880; 84100; 85014; 85018; 85025; 85610; 86900; 86901; 87086; 93005; 93010; 96365; 96366; 96372; 96375; 97110; 97116; 97161; 97166; 97530; 99285-25; A9270; C9113; G0480; J0610; J0696; J0881; J1644; J1815; J1940; J2405; J2597; J3475; J7030; J7050; J7060; J7120; J7799; P9035

== ENCOUNTER → 2021-10-31 | Outpatient (CLI) | payer OTHER ==
[~2021-10-31] MED LIST changes: +AMOCLA875 PO; +Augmentin 875-1 EACH PO; +METF500C PO; +Sulfamethoxazo1 EAC4; +TRULICITY3 MG/0.5 M SC
[2021-10-31 16:12] LABS: BASOPHILS ABSOLUTE AUTO 0.04 K/mm3 (0.00-0.23); BASOPHILS PERCENT AUTO 1 % (0-2); EOSINOPHILS ABSOLUTE AUTO 0.01 K/mm3 (0.00-0.68); EOSINOPHILS PERCENT AUTO 0 % (0-6); Hematocrit 38.3 % (37.0-53.0); Hemoglobin 11.9 g/dL (13.5-17.5); IMMATURE GRAN ABSOLUTE AUTO 0.14 K/mm3 (0.00-0.10); IMMATURE GRAN PERCENT AUTO 2 % (0-1); LYMPHOCYTES ABSOLUTE AUTO 0.75 K/mm3 (0.84-5.20); LYMPHOCYTES PERCENT AUTO 12 % (21-46); MONOCYTES ABSOLUTE AUTO 0.45 K/mm3 (0.16-1.47); MONOCYTES PERCENT AUTO 7 % (4-13); Mean Corpuscular HGB 30.7 pg (26.0-34.0); Mean Corpuscular HGB Conc 31.1 g/dL (31.5-36.5); Mean Corpuscular Volume 99 fL (80-100); NEUTROPHILS ABSOLUTE AUTO 4.83 K/mm3 (1.96-9.15); NEUTROPHILS PERCENT AUTO 78 % (41-73); RDW Coefficient Variation 17.6 % (11.7-14.2); RDW Standard Deviation 64.1 fL (35.1-46.3); Red Blood Cell Count 3.88 M/mm3 (4.30-5.90); White Blood Cell Count 6.22 K/mm3 (4.00-11.30)
[2021-10-31 16:23] LABS: Albumin, Blood 3.5 g/dL (3.4-5.0); Bilirubin, Total 0.7 mg/dL (0.1-1.0); Bun/Creatinine Ratio 8.4 (12.0-20.0); Calcium, Blood 8.8 mg/dL (8.5-10.1); Globulin, Blood 3.5 g/dL (2.2-4.0); Mean Platelet Volume 12.8 fL (9.1-12.4)
[2021-10-31 16:26] LABS: Creatinine, Blood 8.55 mg/dL (0.60-1.20)
[2021-10-31 16:31] LABS: Potassium, Blood 7.8 mmol/L (3.5-5.5)
[2021-10-31 16:44] LABS: BAND PERCENT MAN 9 % (0-8); BASOPHILS ABSOLUTE MAN 0.06 K/mm3 (0.00-0.23); BASOPHILS PERCENT MAN 1 % (0-2); EOSINOPHILS PERCENT MAN 0 % (0-6); LYMPHOCYTES ABSOLUTE MAN 0.87 K/mm3 (0.84-5.20); LYMPHOCYTES PERCENT MAN 14 % (21-46); MONOCYTES ABSOLUTE MAN 0.37 K/mm3 (0.16-1.47); MONOCYTES PERCENT MAN 6 % (4-13); NEUTROPHILS ABSOLUTE MAN 4.91 K/mm3 (1.96-9.15); SEG NEUTROPHILS PERCENT MAN 70 % (41-73); TOTAL CELLS COUNTED 100
[2021-10-31 16:50] LABS: Platelet Count 36 K/mm3 (150-400)
== END | disposition home or self-care (01) ==
LOC: LAB SHORT 16:01
PROVIDERS: Chiropractor
DX: R11.2 Nausea with vomiting, unspecified (principal); R19.7 Diarrhea, unspecified
CPT/HCPCS: 80053; 85025

== ENCOUNTER 2022-06-01 14:45 | Emergency (ER) | payer OTHER ==
[~2022-06-01] VITALS: Ht 172.7 cm; Wt 113.8 kg
[~2022-06-01 14:45] MED LIST changes: +TRULICITY3 MG/0.5 M SC
[2022-06-01 16:37] LABS: Albumin, Blood 3.1 g/dL (3.4-5.0); Albumin/Globulin Ratio 0.8 (0.8-1.8); Bilirubin, Total 0.6 mg/dL (0.1-1.0); Bun/Creatinine Ratio 18.7 (12.0-20.0); Calcium, Blood 8.7 mg/dL (8.5-10.1); Creatinine, Blood 2.09 mg/dL (0.60-1.20); Globulin, Blood 3.7 g/dL (2.2-4.0); Potassium, Blood 4.4 mmol/L (3.5-5.5); Total Protein, Blood 6.8 g/dL (6.4-8.2)
[2022-06-01 16:47] LABS: BASOPHILS ABSOLUTE AUTO 0.01 K/mm3 (0.00-0.23); BASOPHILS PERCENT AUTO 1 % (0-2); EOSINOPHILS ABSOLUTE AUTO 0.08 K/mm3 (0.00-0.68); EOSINOPHILS PERCENT AUTO 4 % (0-6); Hematocrit 31.3 % (37.0-53.0); Hemoglobin 10.8 g/dL (13.5-17.5); IMMATURE GRAN ABSOLUTE AUTO 0.01 K/mm3 (0.00-0.10); IMMATURE GRAN PERCENT AUTO 1 % (0-1); LYMPHOCYTES ABSOLUTE AUTO 0.49 K/mm3 (0.84-5.20); LYMPHOCYTES PERCENT AUTO 23 % (21-46); MONOCYTES ABSOLUTE AUTO 0.41 K/mm3 (0.16-1.47); MONOCYTES PERCENT AUTO 19 % (4-13); Mean Corpuscular HGB 30.5 pg (26.0-34.0); Mean Corpuscular HGB Conc 34.5 g/dL (31.5-36.5); Mean Corpuscular Volume 88 fL (80-100); Mean Platelet Volume 11.6 fL (9.1-12.4); NEUTROPHILS ABSOLUTE AUTO 1.18 K/mm3 (1.96-9.15); NEUTROPHILS PERCENT AUTO 54 % (41-73); RDW Standard Deviation 51.5 fL (35.1-46.3); Red Blood Cell Count 3.54 M/mm3 (4.30-5.90); White Blood Cell Count 2.18 K/mm3 (4.00-11.30)
[2022-06-01 16:50] LABS: Platelet Count 34 K/mm3 (150-400)
== END 2022-06-01 22:50 | disposition home or self-care (01) ==
LOC: ER 14:45
PROVIDERS: Emergency Medicine
DX: T82.897A Other specified complication of cardiac prosthetic devices, implants and grafts, initial encounter (principal); Y71.8 Miscellaneous cardiovascular devices associated with adverse incidents, not elsewhere classified; I50.9 Heart failure, unspecified; N18.4 Chronic kidney disease, stage 4 (severe); E11.22 Type 2 diabetes mellitus with diabetic chronic kidney disease; Z79.84 Long term (current) use of oral hypoglycemic drugs
CPT/HCPCS: 36415; 71045; 80053; 84484; 85025; 93005; 93010; 99284-25

== ENCOUNTER 2023-03-10 00:15 | Day surgery (SDC) | payer OTHER ==
[2023-03-10 15:52] VITALS: BP 126/78
[2023-03-10] MEDS ORDERED: GLIP5 PO (15:55)
[2023-03-10] MEDS ORDERED: COLCHICINE0.6 MG PO (15:56)
[2023-03-10] MEDS ORDERED: MULVITA PO (15:56)
[2023-03-10] MEDS ORDERED: ALLO300 PO (15:57)
[2023-03-10] MEDS ORDERED: TOUJEO SOL300 UNIT/2 SC (15:58)
[2023-03-10 16:13] VITALS: BP 114/79
[2023-03-10 16:49] VITALS: BP 107/67
== END 2023-03-10 17:00 | disposition home or self-care (01) ==
LOC: ATC 00:15
DX: D69.6 Thrombocytopenia, unspecified (principal); E11.42 Type 2 diabetes mellitus with diabetic polyneuropathy; I13.0 Hypertensive heart and chronic kidney disease with heart failure and stage 1 through stage 4 chronic kidney disease, or unspecified chronic kidney disease; E11.22 Type 2 diabetes mellitus with diabetic chronic kidney disease; N18.9 Chronic kidney disease, unspecified; I50.22 Chronic systolic (congestive) heart failure; G47.33 Obstructive sleep apnea (adult) (pediatric); Z95.810 Presence of automatic (implantable) cardiac defibrillator; Z79.84 Long term (current) use of oral hypoglycemic drugs; Z79.899 Other long term (current) drug therapy
CPT/HCPCS: 36430; 86900; 86901; J7050; P9035

== ENCOUNTER → 2023-03-11 | Outpatient (CLI) | payer OTHER ==
[~2023-03-11] MED LIST changes: +ALLO300 PO; +COLCHICINE0.6 MG PO; +MULVITA PO; +TOUJEO SOL300 UNIT/2 SC
== END ==
LOC: PLD 13:33 → LAB SHORT 13:33
DX: E11.621 Type 2 diabetes mellitus with foot ulcer (principal); L97.509 Non-pressure chronic ulcer of other part of unspecified foot with unspecified severity; L97.521 Non-pressure chronic ulcer of other part of left foot limited to breakdown of skin; E11.42 Type 2 diabetes mellitus with diabetic polyneuropathy; M20.42 Other hammer toe(s) (acquired), left foot; R20.0 Anesthesia of skin
CPT/HCPCS: 88305; 88311

== ENCOUNTER → 2024-08-31 | Outpatient (CLI) | payer OTHER | END | disposition home or self-care (01) | LOC: LAB 10:08 → LAB SHORT 10:08 | DX: E11.621 Type 2 diabetes mellitus with foot ulcer (principal); L97.529 Non-pressure chronic ulcer of other part of left foot with unspecified severity | CPT/HCPCS: 87071; 87075; 87077; 87186; 87205 ==

== ENCOUNTER → 2024-08-31 | Outpatient (CLI) | payer OTHER | LOC: LAB 09:00 → LAB SHORT 09:00 | DX: E11.621 Type 2 diabetes mellitus with foot ulcer (principal) | CPT/HCPCS: 87070; 87075; 87077; 87186; 87205 ==

== ENCOUNTER 2024-09-09 08:22 | Inpatient (IN) | payer OTHER, MEDICAID ==
[~2024-09-09] VITALS: Ht 170.2 cm; Wt 105.5 kg
[~2024-09-09 08:22] MED LIST changes: -CARVEDILOL25 M9 PO; -COLCRYS0.6 M1 PO; -DEXT30SU PO; -FAMO20 PO; -FARXIGA10 MG PO; -FIASP 100100 UNIT/3 SC; -GABAPENTIN600 MG PO; -LOSA25 PO; -MOUNJARO12.5 MG/0. SC; -Neurontin800 MG PO; -PRAVASTATIN SOD40 MG PO; -SULFAMETHOXAZO1 EACH PO; -TRAM50 PO; -TRAZ100 PO; -Vitamin D1000 UNI1 PO
[2024-09-09] MEDS ORDERED: SULFAMETHOXAZO1 EACH PO (08:43)
[2024-09-09] MEDS ORDERED: DEXT30SU PO (08:48)
[2024-09-09] MEDS ORDERED: GABAPENTIN600 MG PO (08:50)
[2024-09-09] MEDS ORDERED: TRAM50 PO (08:50)
[2024-09-09] MEDS ORDERED: FAMO20 PO (08:50)
[2024-09-09] MEDS ORDERED: FIASP 100100 UNIT/3 SC (08:50)
[2024-09-09] MEDS ORDERED: FARXIGA10 MG PO (08:50)
[2024-09-09] MEDS ORDERED: TRAZ100 PO (08:51)
[2024-09-09] MEDS ORDERED: PRAVASTATIN SOD40 MG PO (08:51)
[2024-09-09] MEDS ORDERED: Neurontin800 MG PO (08:51)
[2024-09-09] MEDS ORDERED: CARVEDILOL25 M9 PO (08:52)
[2024-09-09] MEDS ORDERED: MOUNJARO12.5 MG/0. SC (08:52)
[2024-09-09] MEDS ORDERED: COLCRYS0.6 M1 PO (08:53)
[2024-09-09] MEDS ORDERED: Vitamin D1000 UNI1 PO (08:54)
[2024-09-09] MEDS ORDERED: LOSA25 PO (08:54)
[2024-09-09] MEDS ORDERED: TOUJEO SOL300 UNIT/2 SC (08:55)
[2024-09-09 09:26] LABS: Hemoglobin 10.1 g/dL (13.5-17.5); Mean Corpuscular HGB 29.3 pg (26.0-34.0); Mean Corpuscular HGB Conc 32.6 g/dL (31.5-36.5); Mean Corpuscular Volume 90 fL (80-100); Mean Platelet Volume 12.4 fL (9.1-12.4); Platelet Count 64 K/mm3 (150-400); RDW Coefficient Variation 16.8 % (11.7-14.2); RDW Standard Deviation 54.1 fL (35.1-46.3); Red Blood Cell Count 3.45 M/mm3 (4.30-5.90); White Blood Cell Count 4.16 K/mm3 (4.00-11.30)
[2024-09-09] MEDS ORDERED: Piperacillin/Tazobactam Sod 3.375 GM in NS 100 ML IV ONE (09:35)
[2024-09-09 09:53] LABS: Albumin, Blood 2.4 g/dL (3.4-5.0); Albumin/Globulin Ratio 0.5 (0.8-1.8); Bilirubin, Total 0.7 mg/dL (0.1-1.0); Bun/Creatinine Ratio 17.9 (12.0-20.0); C-REACTIVE PROTEIN, EXT RANGE 7.13 mg/dL (0.000-0.300); Calcium, Blood 8.5 mg/dL (8.5-10.1); Creatinine, Blood 2.07 mg/dL (0.60-1.20); Globulin, Blood 4.7 g/dL (2.2-4.0); Magnesium, Blood 2.5 mg/dL (1.6-2.4); Potassium, Blood 3.6 mmol/L (3.5-5.5); Total Protein, Blood 7.1 g/dL (6.4-8.2)
[2024-09-09] MEDS ORDERED: Vancomycin HCL 2,000 MG in NS 500 ML IV ONE (10:15)
[2024-09-09 10:23] LABS: BAND PERCENT MAN 6 % (0-8); BASOPHILS ABSOLUTE MAN 0.04 K/mm3 (0.00-0.23); BASOPHILS PERCENT MAN 1 % (0-2); BLASTS PERCENT MAN 1 % (0-0); EOSINOPHILS ABSOLUTE MAN 0.08 K/mm3 (0.00-0.68); EOSINOPHILS PERCENT MAN 2 % (0-6); LYMPHOCYTES ABSOLUTE MAN 0.41 K/mm3 (0.84-5.20); LYMPHOCYTES PERCENT MAN 10 % (21-46); MONOCYTES ABSOLUTE MAN 0.24 K/mm3 (0.16-1.47); MONOCYTES PERCENT MAN 6 % (4-13); MYELOCYTE ABSOLUTE MAN 0.16 K/mm3 (0.00-0.00); MYELOCYTE PERCENT MAN 4 % (0-0); NEUTROPHILS ABSOLUTE MAN 3.16 K/mm3 (1.96-9.15); SEG NEUTROPHILS PERCENT MAN 70 % (41-73); TOTAL CELLS COUNTED 100
[2024-09-09] MEDS ORDERED: FLU VACC TS2024-25(6MOS UP)/PF 45 MCG/0.5 ML SYRINGE IM SCH (10:35)
[2024-09-09] MEDS ORDERED: Insulin Human Lispro 100 Units/ML 3ML Syringe SC SCH ×2 (12:00→21:00)
[2024-09-09] MEDS ORDERED: Ketorolac Tromethamine 10 MG Tab PO PRN (15:05)
[2024-09-09] MEDS ORDERED: HYDROcodone 5-APAP 325 TAB PO PRN ×2 (15:50→22:48)
[2024-09-09] MEDS ORDERED: Piperacillin/Tazobactam Sod 4.5 GM in NS 100 ML IV SCH (16:00)
[2024-09-09] MEDS ORDERED: Miconazole Nitrate 2% 85 GM PWD TOP SCH (16:15)
[2024-09-09 16:37] VITALS: BP 114/67
[2024-09-09] MEDS ORDERED: Carvedilol 25 MG Tab PO SCH (17:00)
--- NOTE | 2024-09-09 18:03 | NUR ---
SHIFT SUMMARY PT IS A/OX4. ADMITTED FROM THE ED THIS AFTERNOON. PT IS ON TELE RUNNING VENTRICULAR PACED IN THE 50'S, ASSOCIATE DIRECTOR FINANCE REPORTED TO HAVE OCCASIONALLY DROPPED IN THE 40'S. FAMILY AT BEDSIDE DURING ADMISSION. PT IS ON RA. MEDICATED WITH NORCO X1 THIS SHIFT PER JAN. DR ZURITA VISITED THIS EVENING, PLANS TO COMPLETE A VASCULAR ULTRASOUND AND POSSIBLE ANGIOGRAM ON SATURDAY.
[2024-09-09 19:39] VITALS: BP 109/67
[2024-09-09] MEDS ORDERED: Famotidine 20 MG Tab PO SCH (21:00)
[2024-09-09] MEDS ORDERED: Gabapentin 300 MG Cap PO SCH (21:00)
[2024-09-09] MEDS ORDERED: TraZODone HCl 100 MG Tab PO SCH (21:00)
[2024-09-09] MEDS ORDERED: Insulin Glargine-Yfgn 100 Unit/mL 3 ML SYR SC SCH (21:00)
[2024-09-09] MEDS ORDERED: Pravastatin Sodium 20 MG Tab PO SCH (21:00)
[2024-09-09] MEDS ORDERED: Gabapentin 300 MG Cap PO ONE (22:50)
[2024-09-10] VITALS (23 sets, daily range): BP systolic 94–136; BP diastolic 52–86
--- NOTE | 2024-09-10 01:10 | NUR ---
PT REPORTED THAT HE TAKES 900MG GABAPENTIN AT BEDTIME. THIS ASSET PROTECTION DETECTIVE HAD ALREADY ADMINISTERED THE 2100 SCHEDULED PO 300MG GABAPENTIN ORDERED. PER PT REQUEST THIS ASSET PROTECTION DETECTIVE CALLED ON-CALL HOSPITALIST KIERAN AND NEW T-ORDERS WERE RECEIVED AND ENTERED TO [employer]: GABAPENTIN PO 900MG AT 2100, AND "GABAPENTIN PO 600MG ONCE,NOW". THIS ASSET PROTECTION DETECTIVE CALLED PHARMACY AND PER PHARMACY: UNABLE TO COMPLETE THE DOSE ADJUSTMENT D/T PT'S RENAL FUNCTION. GABAPENTIN ORDER REMAINS THE SAME, 300MG TID. THIS ASSET PROTECTION DETECTIVE ALSO REQUESTED A WOUND CARE ORDER FROM THE ON-CALL HOSPITALIST KIERAN. PER KIERAN, "WILL NEED TO WAIT UNTIL TOMORROW DAY TIME, AND REQUEST WOUND CARE ORDERS FROM THE PODIATRY PROVIDER." CHARGE NURSE EBONY NOTIFIED.
--- NOTE | 2024-09-10 03:19 | NUR ---
SHIFT SUMMARY NO ACUTE EVENTS/DISTRESS NOTED/REPORTED DURING THIS SHIFT. HS BG 311, INSULIN ADMINISTERED ORDERED. PT REPORTS MILD PAIN, AND REFUSED TORADOL. NORCO PO ORDER CHANGED TO Q2HRS PRN, PER ON-CALL HOSPITALIST (SEE PREVIOUS NOTE.) BED AT THE LOWEST POSITION, CALL LIGHT WITHIN REACH. LEFT LEG ELEVATED WITH PILLOWS, DRESSING C/D/I. AWAITING FOR WOUND CARE ORDER FROM THE PROVIDER/DIGITAL ART DIRECTOR.
[2024-09-10 06:26] LABS: BASOPHILS ABSOLUTE AUTO 0.01 K/mm3 (0.00-0.23); BASOPHILS PERCENT AUTO 0 % (0-2); EOSINOPHILS ABSOLUTE AUTO 0.09 K/mm3 (0.00-0.68); EOSINOPHILS PERCENT AUTO 3 % (0-6); Hematocrit 28.8 % (37.0-53.0); Hemoglobin 9.3 g/dL (13.5-17.5); IMMATURE GRAN ABSOLUTE AUTO 0.14 K/mm3 (0.00-0.10); IMMATURE GRAN PERCENT AUTO 4 % (0-1); LYMPHOCYTES PERCENT AUTO 12 % (21-46); MONOCYTES ABSOLUTE AUTO 0.45 K/mm3 (0.16-1.47); MONOCYTES PERCENT AUTO 14 % (4-13); Mean Corpuscular HGB 28.8 pg (26.0-34.0); Mean Corpuscular HGB Conc 32.3 g/dL (31.5-36.5); Mean Corpuscular Volume 89 fL (80-100); Mean Platelet Volume 11.6 fL (9.1-12.4); NEUTROPHILS ABSOLUTE AUTO 2.18 K/mm3 (1.96-9.15); NEUTROPHILS PERCENT AUTO 67 % (41-73); Platelet Count 55 K/mm3 (150-400); RDW Coefficient Variation 17.1 % (11.7-14.2); RDW Standard Deviation 54.4 fL (35.1-46.3); Red Blood Cell Count 3.23 M/mm3 (4.30-5.90); White Blood Cell Count 3.27 K/mm3 (4.00-11.30)
[2024-09-10 06:54] LABS: Bun/Creatinine Ratio 16.1 (12.0-20.0); C-REACTIVE PROTEIN, EXT RANGE 5.99 mg/dL (0.000-0.300); Calcium, Blood 8.2 mg/dL (8.5-10.1); Creatinine, Blood 1.99 mg/dL (0.60-1.20); Potassium, Blood 3.9 mmol/L (3.5-5.5)
[2024-09-10] MEDS ORDERED: Allopurinol 300 MG Tab PO SCH (09:00)
[2024-09-10] MEDS ORDERED: Cholecalciferol 1000 Unit Tablet (=25MCG) PO SCH (09:00)
[2024-09-10] MEDS ORDERED: Bumetanide 1 MG Tab PO SCH (09:00)
[2024-09-10] MEDS ORDERED: Gabapentin 300 MG Cap PO SCH ×2 (09:00)
[2024-09-10] MEDS ORDERED: Losartan Potassium 25 MG Tab PO SCH (09:00)
[2024-09-10] MEDS ORDERED: Multivitamins 1 Tab PO SCH (09:00)
[2024-09-10] MEDS ORDERED: NS 250 ML IV PRN (09:35)
[2024-09-10] MEDS ORDERED: Vancomycin HCL 1,250 MG in NS 250 ML IV SCH (11:00)
[2024-09-10] MEDS ORDERED: Lactated Ringer's 1,000 ML IV SCH (14:50)
[2024-09-10] MEDS ORDERED: FentaNYL Citrate 50 MCG/ML 2 ML Injection ONE (15:40)
[2024-09-10] MEDS ORDERED: Midazolam HCl 1MG / ML 2ML Vial ONE ×2 (15:40→19:24)
[2024-09-10] MEDS ORDERED: Ondansetron HCl 2 MG / ML 2ML Vial ONE (15:42)
[2024-09-10] MEDS ORDERED: Dexamethasone Sod Phos 10 MG/ML 1ML VIAL ONE (15:42)
[2024-09-10] MEDS ORDERED: propofoL 20 ML IV ONE ×4 (15:47→19:18)
--- NOTE | 2024-09-10 16:30 | NUR ---
DR. MURILLO AT BEDSIDE. TIME OUT COMPLETE FOR LEFT LEG ADDUCTOR CANAL AND POPLITEAL/SCIATIC NERVE BLOCK. PT PLACED ON 3 LITERS NASAL CANULA AND CONTINUOUS SP02 MONITORING. PT MEDICATED WITH BOTH FENTANYL AND VERSED BY DOCTOR MURILLO-MAINTAINED SPO2 >90%. PT TOLERATED PROCEDURE WELL.
--- NOTE | 2024-09-10 18:10 | NUR ---
SHIFT SUMMARY PT IS A/OX4. PT ON TELE RUNNING VENTRICULAR PACED IN THE 50'S. PT TO OR FOR AN IRRIGATION AND DEBRIDEMENT OF THE LEFT FOOT. MEDICATED X1 THIS SHIFT WITH NORCO PER JAN. TELE REPORTED 6 RUNS OF V-TACH WHILE THE PT WAS IN PACU. FAMILY AT BEDSIDE THROUGHOUT THE SHIFT.
[2024-09-10] MEDS ORDERED: Lactated Ringer's 1,000 ML IV ONE (19:12)
--- NOTE | 2024-09-10 19:14 | NUR ---
PT IN PACU FOR PRE-OP, REPORT FROM KAMRYN LANDIN
[2024-09-10] MEDS ORDERED: NS 1,000 ML IV ONE (19:57)
[2024-09-10 23:28] LABS: Hematocrit 33.8 % (37.0-53.0); Hemoglobin 10.7 g/dL (13.5-17.5); Mean Corpuscular HGB Conc 31.7 g/dL (31.5-36.5); Mean Corpuscular Volume 92 fL (80-100); Mean Platelet Volume 11.3 fL (9.1-12.4); Platelet Count 54 K/mm3 (150-400); RDW Coefficient Variation 16.6 % (11.7-14.2); RDW Standard Deviation 54.6 fL (35.1-46.3); Red Blood Cell Count 3.69 M/mm3 (4.30-5.90); White Blood Cell Count 3.84 K/mm3 (4.00-11.30)
[2024-09-10 23:58] LABS: BAND PERCENT MAN 8 % (0-8); BASOPHILS PERCENT MAN 0 % (0-2); EOSINOPHILS PERCENT MAN 0 % (0-6); LYMPHOCYTES % ATYPICAL MANUAL 1 % (0-0); LYMPHOCYTES ABSOLUTE MAN 0.23 K/mm3 (0.84-5.20); LYMPHOCYTES PERCENT MAN 5 % (21-46); METAMYELOCYTE ABSOLUTE MAN 0.11 K/mm3 (0.00-0.00); METAMYELOCYTE PERCENT MAN 3 % (0-0); MONOCYTES ABSOLUTE MAN 0.07 K/mm3 (0.16-1.47); MONOCYTES PERCENT MAN 2 % (4-13); MYELOCYTE ABSOLUTE MAN 0.07 K/mm3 (0.00-0.00); MYELOCYTE PERCENT MAN 2 % (0-0); NEUTROPHILS ABSOLUTE MAN 3.34 K/mm3 (1.96-9.15); SEG NEUTROPHILS PERCENT MAN 79 % (41-73); TOTAL CELLS COUNTED 100
[2024-09-11] VITALS (12 sets, daily range): BP systolic 99–159; BP diastolic 52–108
--- NOTE | 2024-09-11 00:18 | NUR ---
PT ARRIVED BACK TO MEDICAL FLOOR AT MIDNIGHT. PT RESTING AWAKE COMFORTABLY, SMILING AND COOPERATIVE WITH CARE. PT DENIES PAIN AT THIS TIME. @2320 THIS FINGERNAIL FORMER RECEIVED TELEPHONE HANDOFF FROM MUSHTAQ CORBETT AT ICU. VSS, RA, PT AWAKE, A@O X4. NO ACUTE DISTRESS NOTED AT THIS TIME. CONTINUING POST OP VS PER PROTOCOL.
--- NOTE | 2024-09-11 00:32 | NUR ---
@0033 THIS UTILITIES SERVICE INVESTIGATOR SPOKE WITH ON-CALL HOSPITALIST DR. MAYES REGARDING THE LAB WORK DRAWN AT 2320 DURING THIS SHIFT (POST-OP). PER , NO ADDITIONAL BLOOD TRANSFUSION NEEDED AT THIS TIME. CODING DIRECTOR NOTIFIED.
--- NOTE | 2024-09-11 04:02 | NUR ---
SHIFT SUMMARY PT HAS BEEN AWAKE AFTER ARRIVING BACK FROM THE SURGERY/ICU. ON-CALL /HOSPITALIST NOTIFIED ABOUT LABS AND T-ORDER WAS GIVEN TO THIS SEAL EXTRUSION OPERATOR NOT TO INITIATE A BLOOD TRANSFUSION (WITH POWER SUPERINTENDENT BRIAN, WHO WAS NOTIFIED.) PT REPORTS 4/10 LEFT LE PAIN, NORCO 5/325MG PRN ADMINISTERED X1 DURING THIS SHIFT. IV ABX INFUSING A SORDERED AT 0400. NO ACUTE EVENTS DURING THIS SHIFT. BED AT THE LOWEST POSITION, CALL LIGHT WITHIN REACH. PT IS ABLE TO MAKE HIS NEEDS KNOWN.
--- NOTE | 2024-09-11 05:42 | NUR ---
this ad writer attempted to clear emar last evenings's ( 09/10/24) medications that were late by scanning the pt's wristband and documenting "not given". due to pt was in surgery, and at ICU after. pt returned to medical floor at 0000. this ad writer charted this info at 0323. lactated ringer and normal saline still showing as active meds on emar- those were pre op medications.
[2024-09-11 06:12] LABS: BASOPHILS ABSOLUTE AUTO 0.02 K/mm3 (0.00-0.23); BASOPHILS PERCENT AUTO 0 % (0-2); EOSINOPHILS ABSOLUTE AUTO 0.01 K/mm3 (0.00-0.68); EOSINOPHILS PERCENT AUTO 0 % (0-6); Hematocrit 30.3 % (37.0-53.0); Hemoglobin 9.9 g/dL (13.5-17.5); IMMATURE GRAN ABSOLUTE AUTO 0.16 K/mm3 (0.00-0.10); IMMATURE GRAN PERCENT AUTO 3 % (0-1); LYMPHOCYTES PERCENT AUTO 6 % (21-46); MONOCYTES ABSOLUTE AUTO 0.32 K/mm3 (0.16-1.47); MONOCYTES PERCENT AUTO 7 % (4-13); Mean Corpuscular HGB 29.6 pg (26.0-34.0); Mean Corpuscular HGB Conc 32.7 g/dL (31.5-36.5); Mean Corpuscular Volume 91 fL (80-100); Mean Platelet Volume 11.9 fL (9.1-12.4); NEUTROPHILS ABSOLUTE AUTO 3.93 K/mm3 (1.96-9.15); NEUTROPHILS PERCENT AUTO 83 % (41-73); Platelet Count 52 K/mm3 (150-400); RDW Coefficient Variation 16.7 % (11.7-14.2); RDW Standard Deviation 54.5 fL (35.1-46.3); Red Blood Cell Count 3.34 M/mm3 (4.30-5.90); White Blood Cell Count 4.74 K/mm3 (4.00-11.30)
[2024-09-11 06:27] LABS: Bun/Creatinine Ratio 19.5 (12.0-20.0); Calcium, Blood 8.2 mg/dL (8.5-10.1); Creatinine, Blood 1.69 mg/dL (0.60-1.20); Potassium, Blood 4.9 mmol/L (3.5-5.5)
[2024-09-11] MEDS ORDERED: Gabapentin 300 MG Cap PO SCH (09:00)
[2024-09-11] MEDS ORDERED: Insulin Glargine-Yfgn 100 Unit/mL 3 ML SYR SC SCH (09:00)
--- NOTE | 2024-09-11 10:30 | NUR ---
DR RODGERS ROUNDED, PATIENT ALERT AND OREINTED X3, DIET CHANGED TO CARB CONSISTENT, INSULIN COVERAGE GIVEN, PT/OT ORDERED, PATIENT NWB TO LEFT FOOT, CALL LIGHT WITH IN REACH, PLEASANT TO CARE
[2024-09-11 10:32] LABS: Vancomycin, Trough 17.2 ug/mL (5.0-10.0)
--- NOTE | 2024-09-11 12:56 | NUR ---
DR CARDOZA ROUNDED ON PATIENT, PATIENT MEDICATED FOR PAIN, DRESSING CHANGE DONE BY DR CARDOZA, CEDRIC DRAIN IN PLACE AND COMPRESSED, PATIENT TOLERATED DRESSING CHANGE WITH EASE, EATING LUNCH NOW, COVERED BS FOR LUNCH, CALL LIGHT WITH IN REACH
[2024-09-11] MEDS ORDERED: Insulin Human Lispro 100 Units/ML 3ML Syringe SC SCH (17:45)
--- NOTE | 2024-09-11 17:55 | NUR ---
NO ACUTE CHANGES, CEDRIC COMPRESSED, DR CARDOZA DID DRESSING, ALERT AND ORIENTED TO ALL, PT/OT WORKED WITH PATIENT, EVENING [id number], REPORTED TO DR RODGERS S/S COVERAGE INCREASED TO MEDIUM. FAMILY VISITED THROUGH OUT THE DAY, DAUGHTER AT BEDSIDE NOW, PLEASANT TO CARE. RECOMMENDATION FOR SNF FOR PT/OT, MEDICATED FOR PAIN THROUGH OUT THE DAY WITH HYDROCODONE, PATIENT REPORTS RELIEF, LEFT FOOT ELEVATED ON PILLOW, CALL LIGHT WITH IN REACH
[2024-09-11] MEDS ORDERED: Cholecalciferol 1000 Unit Tablet (=25MCG) PO SCH (21:00)
[2024-09-11] MEDS ORDERED: Losartan Potassium 25 MG Tab PO SCH (21:00)
[2024-09-12 05:25] LABS: BASOPHILS ABSOLUTE AUTO 0.02 K/mm3 (0.00-0.23); BASOPHILS PERCENT AUTO 0 % (0-2); EOSINOPHILS ABSOLUTE AUTO 0.05 K/mm3 (0.00-0.68); EOSINOPHILS PERCENT AUTO 1 % (0-6); Hemoglobin 9.1 g/dL (13.5-17.5); IMMATURE GRAN ABSOLUTE AUTO 0.09 K/mm3 (0.00-0.10); IMMATURE GRAN PERCENT AUTO 2 % (0-1); LYMPHOCYTES ABSOLUTE AUTO 0.49 K/mm3 (0.84-5.20); LYMPHOCYTES PERCENT AUTO 10 % (21-46); MONOCYTES ABSOLUTE AUTO 0.62 K/mm3 (0.16-1.47); MONOCYTES PERCENT AUTO 12 % (4-13); Mean Corpuscular HGB 29.2 pg (26.0-34.0); Mean Corpuscular HGB Conc 32.5 g/dL (31.5-36.5); Mean Corpuscular Volume 90 fL (80-100); Mean Platelet Volume 12.6 fL (9.1-12.4); NEUTROPHILS ABSOLUTE AUTO 3.88 K/mm3 (1.96-9.15); NEUTROPHILS PERCENT AUTO 75 % (41-73); RDW Coefficient Variation 16.7 % (11.7-14.2); RDW Standard Deviation 53.9 fL (35.1-46.3); Red Blood Cell Count 3.12 M/mm3 (4.30-5.90); White Blood Cell Count 5.15 K/mm3 (4.00-11.30)
[2024-09-12 05:32] VITALS: BP 101/65
[2024-09-12 05:56] LABS: Platelet Count 50 K/mm3 (150-400)
[2024-09-12 06:00] LABS: Bun/Creatinine Ratio 22.6 (12.0-20.0); Calcium, Blood 8.3 mg/dL (8.5-10.1); Creatinine, Blood 2.08 mg/dL (0.60-1.20); Potassium, Blood 4.1 mmol/L (3.5-5.5)
[2024-09-12 07:31] VITALS: BP 106/66
[2024-09-12 15:16] VITALS: BP 105/65
--- NOTE | 2024-09-12 17:24 | NUR ---
NO ACUTE CHANGES, DR CARDOZA ROUNDED TODAY, FAMILY VISITED, MEDICATED FOR PAIN, CLEARLY MAKES NEEDS KNOWN, ALERT AND ORIENTED TO ALL, PLEASANT TO CARE, CALL LIGHT WITH IN REACH, WILL RELAY TO PM RN
[2024-09-12 19:57] VITALS: BP 95/67
[2024-09-12] MEDS ORDERED: Gabapentin 300 MG Cap PO SCH (21:00)
[2024-09-13 02:35] VITALS: BP 120/73
--- NOTE | 2024-09-13 05:01 | NUR ---
SHIFT SUMMARY. PT IS A 59 YO FULL CODE MALE. PT HAS BEEN RESTING MOST OF THE EVENING, PT STARTED THE EVENING WITH DAUGHTER IN THE ROOM. PT HAS A BOWEL MOVEMENT WITH A 1 ASSIST TO THE BSC USING FWW. PTS LOSARTAN WAS HELD DUE TO LOW BP (SEE eMAR) PT HAS A CEDRIC DRAIN AND IS NON WEIGHT BEARING ON LEFT LEG . PT IS ON TELE WITH A PACEMAKER AND CURRENTLY AV PACED WITH HR IN THE 50'S. PT DID RECIEVE 3UNITS OF INSULIN AT BEDTIME FOR BS OF 321 PER SLIDING SCALE. PT ALSO TOOK PAIN MEDICATION (SEE eMAR). CALL LIGHT WITHIN REACH
[2024-09-13 05:49] LABS: BASOPHILS ABSOLUTE AUTO 0.01 K/mm3 (0.00-0.23); BASOPHILS PERCENT AUTO 0 % (0-2); EOSINOPHILS ABSOLUTE AUTO 0.09 K/mm3 (0.00-0.68); EOSINOPHILS PERCENT AUTO 3 % (0-6); Hematocrit 26.8 % (37.0-53.0); Hemoglobin 8.7 g/dL (13.5-17.5); IMMATURE GRAN ABSOLUTE AUTO 0.13 K/mm3 (0.00-0.10); IMMATURE GRAN PERCENT AUTO 4 % (0-1); LYMPHOCYTES ABSOLUTE AUTO 0.65 K/mm3 (0.84-5.20); LYMPHOCYTES PERCENT AUTO 19 % (21-46); MONOCYTES ABSOLUTE AUTO 0.48 K/mm3 (0.16-1.47); MONOCYTES PERCENT AUTO 14 % (4-13); Mean Corpuscular HGB 29.4 pg (26.0-34.0); Mean Corpuscular HGB Conc 32.5 g/dL (31.5-36.5); Mean Corpuscular Volume 91 fL (80-100); Mean Platelet Volume 11.6 fL (9.1-12.4); NEUTROPHILS ABSOLUTE AUTO 1.99 K/mm3 (1.96-9.15); NEUTROPHILS PERCENT AUTO 59 % (41-73); RDW Coefficient Variation 16.7 % (11.7-14.2); RDW Standard Deviation 54.6 fL (35.1-46.3); Red Blood Cell Count 2.96 M/mm3 (4.30-5.90); White Blood Cell Count 3.35 K/mm3 (4.00-11.30)
[2024-09-13 06:16] LABS: Bun/Creatinine Ratio 21.2 (12.0-20.0); Calcium, Blood 8.2 mg/dL (8.5-10.1); Creatinine, Blood 1.98 mg/dL (0.60-1.20); Potassium, Blood 3.7 mmol/L (3.5-5.5)
[2024-09-13 06:19] LABS: Platelet Count 43 K/mm3 (150-400)
--- NOTE | 2024-09-13 06:27 | NUR ---
CRITICAL LAB VALUE-CALLED [facility] AND DOCTOR SAID TO REDRAW WITH NORMAL LABS ON 09/14/24 IN THE AM. PLT LEVEL IS TRENDING DOWN AND WAS 43
[2024-09-13 07:42] VITALS: BP 112/70
[2024-09-13 11:26] LABS: Vancomycin, Trough 21.3 ug/mL (5.0-10.0)
--- NOTE | 2024-09-13 12:50 | NUR ---
DR CARDOZA ROUNDED ON PATIENT, DRESSING CHANGE DONE AND CEDRIC REMOVED, PATIENT MEDICATED FOR PAIN AFTER DRESSING CHANGE, NO DISTRESS, EATING LUNCH NOW
[2024-09-13 16:52] VITALS: BP 117/69
--- NOTE | 2024-09-13 17:58 | NUR ---
ALERT AND ORIENTED X4, DR CARDOZA REMOVED CEDRIC AND DID A DRESSING CHANGE TODAY, PATIENT MEDICATED FOR PAIN X2. CLEARLY MAKES NEEDS KNOWN, FAMILY HELPFUL WITH CARE, VANCO TO RESTART TOMORROW FOR A TROUGH OF 21.3, TELEMETRY DISCONTINUED, CALL LIGHT WITH IN REACH, WILL RELAY TO PM RN
[2024-09-13 19:38] VITALS: BP 112/64
[2024-09-14 05:00] VITALS: BP 112/71
[2024-09-14 05:37] LABS: BASOPHILS ABSOLUTE AUTO 0.02 K/mm3 (0.00-0.23); BASOPHILS PERCENT AUTO 1 % (0-2); EOSINOPHILS ABSOLUTE AUTO 0.08 K/mm3 (0.00-0.68); EOSINOPHILS PERCENT AUTO 3 % (0-6); Hematocrit 27.4 % (37.0-53.0); Hemoglobin 8.8 g/dL (13.5-17.5); IMMATURE GRAN PERCENT AUTO 4 % (0-1); LYMPHOCYTES PERCENT AUTO 19 % (21-46); MONOCYTES ABSOLUTE AUTO 0.32 K/mm3 (0.16-1.47); MONOCYTES PERCENT AUTO 12 % (4-13); Mean Corpuscular HGB 28.9 pg (26.0-34.0); Mean Corpuscular HGB Conc 32.1 g/dL (31.5-36.5); Mean Corpuscular Volume 90 fL (80-100); Mean Platelet Volume 12.1 fL (9.1-12.4); NEUTROPHILS ABSOLUTE AUTO 1.67 K/mm3 (1.96-9.15); NEUTROPHILS PERCENT AUTO 62 % (41-73); RDW Coefficient Variation 16.6 % (11.7-14.2); RDW Standard Deviation 53.2 fL (35.1-46.3); Red Blood Cell Count 3.05 M/mm3 (4.30-5.90); White Blood Cell Count 2.69 K/mm3 (4.00-11.30)
[2024-09-14 05:40] LABS: Platelet Count 44 K/mm3 (150-400)
[2024-09-14 06:01] LABS: Bun/Creatinine Ratio 19.5 (12.0-20.0); C-REACTIVE PROTEIN, EXT RANGE 3.22 mg/dL (0.000-0.300); Calcium, Blood 7.8 mg/dL (8.5-10.1); Creatinine, Blood 1.9 mg/dL (0.60-1.20); Potassium, Blood 3.7 mmol/L (3.5-5.5)
[2024-09-14 07:38] VITALS: BP 118/76
[2024-09-14] MEDS ORDERED: Lactobacil 2-S.Thermo-Bifido 1 1 Cap PO SCH (09:00)
[2024-09-14] MEDS ORDERED: Vancomycin HCL 1,000 MG in NS 250 ML IV SCH (09:00)
[2024-09-14 15:28] VITALS: BP 113/78
--- NOTE | 2024-09-14 18:17 | NUR ---
SHIFT SUMMARY: PT IS A&OX4-1 PERSON ASSIST WITH FWW NON WEIGHT BEARING ON L FOOT. PATIENT RECEIVING IV ANTIOTICS AND PAIN MEDICATION NEEDED. PATIENT HAS BEEN PLEASANT AND COOPERATIVE WITH CARE, MAKES HIS NEEDS KNOWN, IN BED, CALL LIGHT WITHIN REACH, VISITORS AT BEDSIDE, NO SIGNS OR SYMPTOMS OF DISTRESS, PLAN OF CARE ONGOING.
[2024-09-14 20:44] VITALS: BP 130/65
[2024-09-15 02:51] VITALS: BP 137/84
--- NOTE | 2024-09-15 05:36 | NUR ---
SHIFT SUMMARY ADMITTED FOR LEFT FOOT OSTEOMYELITIS. FULL CODE. IV ANTIB RX ARE SCHEDULED. LEFT TRANSMETATARSAL AMPUTATION PERFORMED ON 09/10/24. DR. CARDOZA IS PODIATRY CONSULT. [facility] CBG'S, MEDIUM SS. 1 PIVOT ASSIST TO BSC, LEFT FOOT IS NOT WEIGHT BEARING. ADA DIET. A&O X4. ON RA. PACEMAKER IN PLACE. HX OF THROMBOCYTOPENIA. MONITORING LABS.
[2024-09-15 07:38] VITALS: BP 119/75
[2024-09-15 08:21] LABS: BASOPHILS ABSOLUTE AUTO 0.02 K/mm3 (0.00-0.23); BASOPHILS PERCENT AUTO 1 % (0-2); EOSINOPHILS ABSOLUTE AUTO 0.06 K/mm3 (0.00-0.68); EOSINOPHILS PERCENT AUTO 3 % (0-6); Hematocrit 28.4 % (37.0-53.0); Hemoglobin 9.2 g/dL (13.5-17.5); IMMATURE GRAN ABSOLUTE AUTO 0.09 K/mm3 (0.00-0.10); IMMATURE GRAN PERCENT AUTO 4 % (0-1); LYMPHOCYTES ABSOLUTE AUTO 0.45 K/mm3 (0.84-5.20); LYMPHOCYTES PERCENT AUTO 21 % (21-46); MONOCYTES ABSOLUTE AUTO 0.24 K/mm3 (0.16-1.47); MONOCYTES PERCENT AUTO 11 % (4-13); Mean Corpuscular HGB Conc 32.4 g/dL (31.5-36.5); Mean Corpuscular Volume 90 fL (80-100); Mean Platelet Volume 13.1 fL (9.1-12.4); NEUTROPHILS ABSOLUTE AUTO 1.34 K/mm3 (1.96-9.15); NEUTROPHILS PERCENT AUTO 61 % (41-73); RDW Coefficient Variation 16.5 % (11.7-14.2); RDW Standard Deviation 53.8 fL (35.1-46.3); Red Blood Cell Count 3.17 M/mm3 (4.30-5.90)
[2024-09-15 08:36] LABS: Platelet Count 41 K/mm3 (150-400)
[2024-09-15 08:39] LABS: Bun/Creatinine Ratio 15.2 (12.0-20.0); Creatinine, Blood 1.84 mg/dL (0.60-1.20)
[2024-09-15 08:40] LABS: Vancomycin, Trough 15.9 ug/mL (5.0-10.0)
[2024-09-15] MEDS ORDERED: Insulin Glargine-Yfgn 100 Unit/mL 3 ML SYR SC SCH (09:00)
--- NOTE | 2024-09-15 16:48 | NUR ---
SHIFT SUMMARY: NO EVENTS OR CHANGES WITH THE PATIENT THROUGHOUT THE SHIFT. WOUND CARE COMPLETED ON L FOOT PER VERBAL ORDERS FROM DR. CARDOZA; PHOTOS OBTAINED AND PLACED IN PATIENT CHART. ASKED DR. CARDOZA TO PLACE WOUND CARE ORDERS. PATIENT'S PATHOLOGY CAME BACK; DR. CARDOZA AND DR. RODGERS NOTIFIED. AWAITING FOR A NEGATIVE CULTURES PRIOR TO PLACING PICC LINE. PATIENT AMBULATING WITH FWW AND NON WEIGHT BEARING ON LEFT FOOT; TOLERATING WELL. MEDICATING NEEDED FOR PAIN. PATIENT SITTING IN BEDSIDER RECLINER, CALL LIGHT WITHIN REACH, NO SIGNS OR SYMPTOMS OF DISTRES, PLAN OF CARE ONGOING.
[2024-09-15 16:57] VITALS: BP 117/72
[2024-09-15 20:19] VITALS: BP 110/70
--- NOTE | 2024-09-16 04:17 | NUR ---
SHIFT SUMMARY ADMITTED FOR LEFT FOOT OSTEOMYELITIS. FULL CODE. TRANSMETATARSAL AMPUTATION PERFORMED ON 09/10/24. DR. CARDOZA IS PODIATRY CONSULT. ANTIB RX ARE SCHEDULED. [facility] CBG'S, MEDIUM SS. ADA DIET. ON RA. A&O X4. PACEMAKER IN PLACE. PIVOT ASSIST TO BSC, LEFT FOOT IS NON-WEIGHT BEARING. AWAITING NEGATIVE BLOOD CULTURES TO PLACE A PICC LINE FOR DETENTION ANTIB RX.
[2024-09-16 05:35] LABS: BASOPHILS ABSOLUTE AUTO 0.01 K/mm3 (0.00-0.23); BASOPHILS PERCENT AUTO 0 % (0-2); EOSINOPHILS ABSOLUTE AUTO 0.07 K/mm3 (0.00-0.68); EOSINOPHILS PERCENT AUTO 3 % (0-6); Hematocrit 30.7 % (37.0-53.0); Hemoglobin 9.7 g/dL (13.5-17.5); IMMATURE GRAN PERCENT AUTO 4 % (0-1); LYMPHOCYTES ABSOLUTE AUTO 0.55 K/mm3 (0.84-5.20); LYMPHOCYTES PERCENT AUTO 24 % (21-46); MONOCYTES ABSOLUTE AUTO 0.24 K/mm3 (0.16-1.47); MONOCYTES PERCENT AUTO 10 % (4-13); Mean Corpuscular HGB 28.8 pg (26.0-34.0); Mean Corpuscular HGB Conc 31.6 g/dL (31.5-36.5); Mean Corpuscular Volume 91 fL (80-100); Mean Platelet Volume 11.8 fL (9.1-12.4); NEUTROPHILS ABSOLUTE AUTO 1.33 K/mm3 (1.96-9.15); NEUTROPHILS PERCENT AUTO 58 % (41-73); RDW Standard Deviation 54.7 fL (35.1-46.3); Red Blood Cell Count 3.37 M/mm3 (4.30-5.90)
[2024-09-16 05:41] LABS: Platelet Count 43 K/mm3 (150-400)
[2024-09-16 05:59] LABS: Bun/Creatinine Ratio 16.2 (12.0-20.0); C-REACTIVE PROTEIN, EXT RANGE 1.61 mg/dL (0.000-0.300); Calcium, Blood 8.4 mg/dL (8.5-10.1); Creatinine, Blood 1.73 mg/dL (0.60-1.20); Potassium, Blood 3.9 mmol/L (3.5-5.5)
[2024-09-16 06:19] VITALS: BP 114/73
[2024-09-16 07:26] VITALS: BP 127/82
[2024-09-16] MEDS ORDERED: Gabapentin 300 MG Cap PO SCH (09:00)
[2024-09-16 16:18] VITALS: BP 131/76
--- NOTE | 2024-09-16 19:19 | NUR ---
SHIFT SUMMARY: PT A/O X4. PLEASANT AND COOPERATIVE WITH CARE. DR. CARDOZA ARRIVED TO ASSESS PT THIS AM. SPOKE TO DOCTOR REGARDING WOUND ORDERS AND NEED FOR BLOOD CULTURES IN ORDER TO OBTAIN PICC LINE. STAT BLOOD CULTURES X2 PLACED AND OBTAINED. WOULD ON L. FOOT CHANGED THIS SHIFT PER WOUND CARE ORDERS. NO SIGNS OF INFECTION NOTED. IV ABX COMPLETED W/O COMPLICATIONS. 1P ASSIST USING FWW AND GB. NWB ON L. FOOT. CALL LIGHT IN REACH.
[2024-09-16 19:48] VITALS: BP 123/74
--- NOTE | 2024-09-17 04:17 | NUR ---
SHIFT SUMMARY ADMITTED FOR LEFT FOOT OSTEOMYELITIS. FULL CODE. WE ARE MONITORING FOR NEGATIVE BLOOD CULTURES SO THAT A PICC LINE MAY BE PLACED FOR DIRECTOR FRAUD ANTIB RX. DR. CARDOZA IS PODIATRY CONSULT. TRANSMETARSAL AMPUTATION OF THE LEFT FOOT PERFORMED ON 09/10/24. PRN AND DAILY DRESSING CHANGES. [place] [facility] [place] LEFT [place]OT. ADA DIET. ON RA. A&O 4. ACHS CBG'S, MEDIUM SS. HX OF DM2, THROMBOCYTOPENIA. CHF, BARIATRIC SURGERY. ANTIB RX ARE SCHEDULED.
[2024-09-17 05:25] VITALS: BP 120/76
[2024-09-17 05:43] LABS: BASOPHILS ABSOLUTE AUTO 0.01 K/mm3 (0.00-0.23); BASOPHILS PERCENT AUTO 1 % (0-2); EOSINOPHILS ABSOLUTE AUTO 0.05 K/mm3 (0.00-0.68); EOSINOPHILS PERCENT AUTO 2 % (0-6); Hematocrit 28.4 % (37.0-53.0); Hemoglobin 9.1 g/dL (13.5-17.5); IMMATURE GRAN ABSOLUTE AUTO 0.04 K/mm3 (0.00-0.10); IMMATURE GRAN PERCENT AUTO 2 % (0-1); LYMPHOCYTES ABSOLUTE AUTO 0.51 K/mm3 (0.84-5.20); LYMPHOCYTES PERCENT AUTO 25 % (21-46); MONOCYTES ABSOLUTE AUTO 0.33 K/mm3 (0.16-1.47); MONOCYTES PERCENT AUTO 16 % (4-13); Mean Corpuscular HGB 28.8 pg (26.0-34.0); Mean Corpuscular Volume 90 fL (80-100); NEUTROPHILS ABSOLUTE AUTO 1.11 K/mm3 (1.96-9.15); NEUTROPHILS PERCENT AUTO 54 % (41-73); RDW Coefficient Variation 16.7 % (11.7-14.2); RDW Standard Deviation 54.8 fL (35.1-46.3); Red Blood Cell Count 3.16 M/mm3 (4.30-5.90); White Blood Cell Count 2.05 K/mm3 (4.00-11.30)
[2024-09-17 05:51] LABS: Mean Platelet Volume 12.2 fL (9.1-12.4)
[2024-09-17 05:52] LABS: Platelet Count 37 K/mm3 (150-400)
[2024-09-17 06:05] LABS: Bun/Creatinine Ratio 13.5 (12.0-20.0); Calcium, Blood 8.2 mg/dL (8.5-10.1); Creatinine, Blood 1.85 mg/dL (0.60-1.20); Potassium, Blood 3.9 mmol/L (3.5-5.5)
[2024-09-17 07:03] VITALS: BP 129/67
[2024-09-17 15:12] VITALS: BP 116/69
--- NOTE | 2024-09-17 16:27 | NUR ---
SHIFT SUMMARY PT A&OX4, COOPERATIVE, ABLE TO MAKE NEEDS KNOWN. PT HAS BEEN HAPPY THIS SHIFT, CONTINENT USING URINAL. STAND PIVOT TO CHAIR DURING THE DAY. THIS RN AND JESSICA RN PERFORMED WOUND CARE ON LEFT FOOT ACCORDING TO MD ORDERS. MEDICATED WITH INSULIN NEEDED. BED IN LOWEST POSITION, CALL LIGHT WITHIN REACH.
[2024-09-17] MEDS ORDERED: Nystatin 100,000 Unit/ML Susp 5 ML UDC MT SCH (17:00)
[2024-09-17 19:09] VITALS: BP 98/61
[2024-09-18 02:08] VITALS: BP 129/75
--- NOTE | 2024-09-18 03:20 | NUR ---
SHIFT SUMMARY NO ACUTE EVENTS DURING THIS SHIFT. IV ABX INFUSED ORDERED. HS B. PT C/O 04/27 LEFT LE PAIN. PRN NORCO EFFECTIVE PER PT REPORT. BED AT THE LOWEST POSITION, CALL LIGHT W/I REACH. PT IS ABLE TO MAKE HIS NEEDS KNOWN, AND IS COOPERATIVE WITH CARE. PT AWAITING TO D[facility]C TODAY [facility].
[2024-09-18 06:37] LABS: BASOPHILS ABSOLUTE AUTO 0.02 K/mm3 (0.00-0.23); BASOPHILS PERCENT AUTO 1 % (0-2); EOSINOPHILS ABSOLUTE AUTO 0.05 K/mm3 (0.00-0.68); EOSINOPHILS PERCENT AUTO 2 % (0-6); Hematocrit 26.7 % (37.0-53.0); Hemoglobin 8.7 g/dL (13.5-17.5); IMMATURE GRAN ABSOLUTE AUTO 0.04 K/mm3 (0.00-0.10); IMMATURE GRAN PERCENT AUTO 2 % (0-1); LYMPHOCYTES ABSOLUTE AUTO 0.52 K/mm3 (0.84-5.20); LYMPHOCYTES PERCENT AUTO 24 % (21-46); MONOCYTES ABSOLUTE AUTO 0.36 K/mm3 (0.16-1.47); MONOCYTES PERCENT AUTO 17 % (4-13); Mean Corpuscular HGB 29.5 pg (26.0-34.0); Mean Corpuscular HGB Conc 32.6 g/dL (31.5-36.5); Mean Corpuscular Volume 91 fL (80-100); Mean Platelet Volume 11.5 fL (9.1-12.4); NEUTROPHILS ABSOLUTE AUTO 1.16 K/mm3 (1.96-9.15); NEUTROPHILS PERCENT AUTO 54 % (41-73); RDW Coefficient Variation 17.1 % (11.7-14.2); RDW Standard Deviation 56.1 fL (35.1-46.3); Red Blood Cell Count 2.95 M/mm3 (4.30-5.90); White Blood Cell Count 2.15 K/mm3 (4.00-11.30)
[2024-09-18 06:42] LABS: Platelet Count 35 K/mm3 (150-400)
--- NOTE | 2024-09-18 06:45 | NUR ---
RECEIVED A CRITICAL LAB VALUE OVER THE PHONE FROM CHELLE @1830: PLATELET COUNT 35.
[2024-09-18 06:57] LABS: Bun/Creatinine Ratio 12.8 (12.0-20.0); Calcium, Blood 8.6 mg/dL (8.5-10.1); Creatinine, Blood 1.88 mg/dL (0.60-1.20); Potassium, Blood 3.7 mmol/L (3.5-5.5)
[2024-09-18 07:20] VITALS: BP 117/74
[2024-09-18 15:10] VITALS: BP 110/69
--- NOTE | 2024-09-18 17:36 | NUR ---
SHIFT SUMMARY PT A&OX4, VSS, TOLERATING PO, VOIDING, AND PAIN MANAGED. WOUND CARE/DRESSING COMPLETED PER ORDER. PT CONT TO AWAIT PICC LINE PLACEMENT FOR D/C. CALL LIGHT WITHIN REACH AND PT ABLE TO MAKE NEEDS KNOWN.
[2024-09-18 20:38] VITALS: BP 119/66
[2024-09-19 02:42] VITALS: BP 126/65
--- NOTE | 2024-09-19 05:43 | NUR ---
SHIFT SUMMARY PT IS POLITE AND RECEPTIVE TO CARE, ALERT AND ORIENTED TIMES 4. PT ABLE TO MAKE NEEDS KNOWN. PT ADMITTED FOR OSTEOMYELITIS AND IS AWAITING PIC LINE PLACEMENT. PT RECENTLY HAD ALL TOES ON LEFT FOR AMPUTATED. LEFT FOOT IS BANDAGED AND SHOWS NO SIGN OF DRAINAGE. PT IS ACHS BLOOD SUGAR.PT APPEARED TO SLEEP ON AND OFF THROUGH THE NIGHT. BED IN LOWEST POSITION, CALL LIGHT WITHIN REACH, RAILS TIMES 2.
[2024-09-19 06:09] LABS: BASOPHILS ABSOLUTE AUTO 0.02 K/mm3 (0.00-0.23); BASOPHILS PERCENT AUTO 1 % (0-2); EOSINOPHILS ABSOLUTE AUTO 0.04 K/mm3 (0.00-0.68); EOSINOPHILS PERCENT AUTO 2 % (0-6); Hematocrit 27.5 % (37.0-53.0); Hemoglobin 9.1 g/dL (13.5-17.5); IMMATURE GRAN ABSOLUTE AUTO 0.03 K/mm3 (0.00-0.10); IMMATURE GRAN PERCENT AUTO 1 % (0-1); LYMPHOCYTES ABSOLUTE AUTO 0.53 K/mm3 (0.84-5.20); LYMPHOCYTES PERCENT AUTO 25 % (21-46); MONOCYTES ABSOLUTE AUTO 0.36 K/mm3 (0.16-1.47); MONOCYTES PERCENT AUTO 17 % (4-13); Mean Corpuscular HGB 30.1 pg (26.0-34.0); Mean Corpuscular HGB Conc 33.1 g/dL (31.5-36.5); Mean Corpuscular Volume 91 fL (80-100); NEUTROPHILS ABSOLUTE AUTO 1.17 K/mm3 (1.96-9.15); NEUTROPHILS PERCENT AUTO 54 % (41-73); NRBC ABSOLUTE 0.02 K/mm3 (0.00-0.02); NRBC Auto 0.9 /100 WBC (0.0-0.2); RDW Coefficient Variation 17.3 % (11.7-14.2); Red Blood Cell Count 3.02 M/mm3 (4.30-5.90); White Blood Cell Count 2.15 K/mm3 (4.00-11.30)
[2024-09-19 06:21] LABS: Platelet Count 34 K/mm3 (150-400)
--- NOTE | 2024-09-19 06:31 | NUR ---
CONTACTED [employer]AD DR TRISTAN TO REPORT CRITICAL PLATELET COUNT LAB LEVEL OF 34.
[2024-09-19 06:39] LABS: Bun/Creatinine Ratio 11.6 (12.0-20.0); Calcium, Blood 8.6 mg/dL (8.5-10.1); Creatinine, Blood 1.9 mg/dL (0.60-1.20)
[2024-09-19 07:51] VITALS: BP 130/72
[2024-09-19] MEDS ORDERED: CefTRIAXone Sodium 2,000 MG in NS 100 ML IV SCH (11:00)
[2024-09-19 15:28] VITALS: BP 124/84
[2024-09-19 15:30] VITALS: BP 118/75
--- NOTE | 2024-09-19 18:17 | NUR ---
SHIFT SUMMARY WOUND CARE/DRESSING COMPLETED PER ORDER. PROVIDER CONSULT CALLED ON W/ NO ANSWER. PT AWAITING PICC LINE PLACEMENT FOR D/C.
[2024-09-19 19:45] VITALS: BP 107/74
[2024-09-20 02:14] VITALS: BP 124/71
[2024-09-20 05:30] LABS: BASOPHILS ABSOLUTE AUTO 0.01 K/mm3 (0.00-0.23); BASOPHILS PERCENT AUTO 1 % (0-2); EOSINOPHILS ABSOLUTE AUTO 0.07 K/mm3 (0.00-0.68); EOSINOPHILS PERCENT AUTO 4 % (0-6); Hematocrit 26.8 % (37.0-53.0); Hemoglobin 8.7 g/dL (13.5-17.5); IMMATURE GRAN ABSOLUTE AUTO 0.04 K/mm3 (0.00-0.10); IMMATURE GRAN PERCENT AUTO 2 % (0-1); LYMPHOCYTES ABSOLUTE AUTO 0.55 K/mm3 (0.84-5.20); LYMPHOCYTES PERCENT AUTO 28 % (21-46); MONOCYTES PERCENT AUTO 20 % (4-13); Mean Corpuscular HGB 29.1 pg (26.0-34.0); Mean Corpuscular HGB Conc 32.5 g/dL (31.5-36.5); Mean Corpuscular Volume 90 fL (80-100); NEUTROPHILS ABSOLUTE AUTO 0.91 K/mm3 (1.96-9.15); NEUTROPHILS PERCENT AUTO 46 % (41-73); RDW Coefficient Variation 17.3 % (11.7-14.2); RDW Standard Deviation 55.8 fL (35.1-46.3); Red Blood Cell Count 2.99 M/mm3 (4.30-5.90); White Blood Cell Count 1.98 K/mm3 (4.00-11.30)
--- NOTE | 2024-09-20 05:30 | NUR ---
SHIFT SUMMARY PT IS POLITE AND RECEPTIVE TO CARE, ALERT AND ORIENTED TIMES 4. PT IS ON ROOM AIR, NO TELE. PT ABLE TO MAKE NEEDS KNOWN AND DENIED PAIN AT THIS TIME. PT ADMITTED FOR OSTEOMYELITIS AND IS AWAITING PIC LINE PLACEMENT. LEFT FOOT IS BANDAGED AND SHOWS NO SIGN OF DRAINAGE. PT IS ACHS BLOOD SUGAR.PT APPEARED TO SLEEP ON AND OFF THROUGH THE NIGHT. BED IN LOWEST POSITION, CALL LIGHT WITHIN REACH, RAILS TIMES 2.
[2024-09-20 05:44] LABS: Platelet Count 32 K/mm3 (150-400)
[2024-09-20 05:46] LABS: Bun/Creatinine Ratio 14.4 (12.0-20.0); Calcium, Blood 8.5 mg/dL (8.5-10.1); Creatinine, Blood 1.6 mg/dL (0.60-1.20); Potassium, Blood 3.8 mmol/L (3.5-5.5)
[2024-09-20 07:53] VITALS: BP 139/78
[2024-09-20 16:18] VITALS: BP 123/70
--- NOTE | 2024-09-20 17:59 | NUR ---
SHIFT SUMMARY WOUND CARE/DRESSING COMPLETED PER ORDER. PICC LINE PLAN TO BE PLACED THIS PM. POSSIBLE D/C TOMORROW. NO ACUTE CHANGES. CALL LIGHT WITHIN REACH AND PT ABLE TO MAKE NEEDS KNOWN.
[2024-09-20 20:23] VITALS: BP 102/64
[2024-09-21 02:46] VITALS: BP 120/74
--- NOTE | 2024-09-21 04:46 | NUR ---
SHIFT SUMMARY PT IS POLITE AND RECEPTIVE TO CARE, ALERT AND ORIENTED TIMES 4. PT IS ON ROOM AIR, NO TELE. PT ABLE TO MAKE NEEDS KNOWN AND DENIED PAIN AT THIS TIME. PT HAD PIC LINE PLACEMENT TODAY AND MAY BE DISCHARGING IN THE AM TO SN[facility]. NO SIGNS OF DRAINAGE ON LEFT FOOT BANDAGE. PT IS ACHS BLOOD SUGAR. PT APPEARED TO SLEEP ON AND OFF THROUGH THE NIGHT. BED IN LOWEST POSITION, CALL LIGHT WITHIN REACH, RAILS TIMES 2.
[2024-09-21 07:32] VITALS: BP 109/70
[2024-09-21 12:04] LABS: Influenza A, PCR NEGATIVE (NEGATIVE); Influenza B, PCR NEGATIVE (NEGATIVE); Resp Syncytial Virus, PCR NEGATIVE (NEGATIVE); SARS-Cov-2 (COVID-19) PCR, MMC NEGATIVE (NEGATIVE)
[2024-09-21] MEDS ORDERED: LOSA25 PO (13:19)
[2024-09-21] MEDS ORDERED: HUMALOG KW100 UNIT/1 SC (13:19)
[2024-09-21] MEDS ORDERED: BASAGLAR K100 UNIT/1 SC (13:20)
[2024-09-21] MEDS ORDERED: Norco 5-325 Ta1 EACH PO (13:22)
[2024-09-21] MEDS ORDERED: NYSTOP15 GM TOP (13:24)
[2024-09-21] MEDS ORDERED: NYSTATIN100000 U10 MT (13:24)
[2024-09-21] MEDS ORDERED: VISBIOME 112.51 EACH PO (13:25)
--- NOTE | 2024-09-21 15:11 | NUR ---
DISCHARGE: PT D/C @ 1445 VIA WHEELCHAIR WITH TRANSPORT TO [facility]. IV REMOVED BY [facility]HER FROM [facility] W/O COMPLICATIONS. PICC LINE IN PLACE IN [place] FOR 31 DAYS IV ABX. NORCO GIVEN PRIOR TO D/C PER MARK RN REQUEST D/T NOT BEING ABLE TO RECEIVE NORCO AT FACILITY FOR SEVERAL HOURS. REPORT GIVEN TO MARK LANDIN. YVETTE SCRIPT FOR NORCO SENT IN PACKET. NO QUESTIONS AT TIME OF D/C.
== END 2024-09-21 14:49 | DRG 617 ==
LOC: ER 08:22 → ERHOLD 10:34 → MEDS 10:34
PROVIDERS: Family Medicine; Podiatrist Foot & Ankle Surgery; Student in an Organized Health Care Education/Training Program; ADMIT Internal Medicine
PROC: 0Y6N0ZB Detachment at Left Foot, Partial 2nd Ray, Open Approach (ICD-10-PCS; 2024-09-10)
PROC: 0Y6N0ZC Detachment at Left Foot, Partial 3rd Ray, Open Approach (ICD-10-PCS; 2024-09-10)
PROC: 0Y6N0ZD Detachment at Left Foot, Partial 4th Ray, Open Approach (ICD-10-PCS; 2024-09-10)
PROC: 0Y6N0ZF Detachment at Left Foot, Partial 5th Ray, Open Approach (ICD-10-PCS; 2024-09-10)
PROC: 0Y6N0Z9 Detachment at Left Foot, Partial 1st Ray, Open Approach (ICD-10-PCS; principal; 2024-09-10 15:30)
DX: E11.69 Type 2 diabetes mellitus with other specified complication (principal); D61.818 Other pancytopenia; I13.0 Hypertensive heart and chronic kidney disease with heart failure and stage 1 through stage 4 chronic kidney disease, or unspecified chronic kidney disease; M86.8X7 Other osteomyelitis, ankle and foot; I50.22 Chronic systolic (congestive) heart failure; I42.0 Dilated cardiomyopathy; L97.524 Non-pressure chronic ulcer of other part of left foot with necrosis of bone; E11.621 Type 2 diabetes mellitus with foot ulcer; E11.22 Type 2 diabetes mellitus with diabetic chronic kidney disease; N18.30 Chronic kidney disease, stage 3 unspecified; K74.60 Unspecified cirrhosis of liver; E66.9 Obesity, unspecified; E78.5 Hyperlipidemia, unspecified; G47.33 Obstructive sleep apnea (adult) (pediatric); E11.42 Type 2 diabetes mellitus with diabetic polyneuropathy; I49.5 Sick sinus syndrome; M10.9 Gout, unspecified; B96.1 Klebsiella pneumoniae [K. pneumoniae] as the cause of diseases classified elsewhere; B96.89 Other specified bacterial agents as the cause of diseases classified elsewhere; Z79.899 Other long term (current) drug therapy; Z79.4 Long term (current) use of insulin; Z95.810 Presence of automatic (implantable) cardiac defibrillator; Z98.84 Bariatric surgery status; Z68.38 Body mass index [BMI] 38.0-38.9, adult
CPT/HCPCS: 0241U; 36415; 36430; 36569; 71046; 73630; 80048; 80053; 80202; 82947; 83735; 85025; 85651; 86140; 86850; 86900; 86901; 86923; 87040; 87071; 87075; 87077; 87186; 87205; 88305; 88307; 93922; 96365; 97110; 97162; 97166; 97530; 97535; 99284-25; A9270; C1751; J0696; J1100; J1815; J2250; J2405; J2543; J2704; J3010; J3370; J7030; J7040; J7050; J7120; P9016; P9035

== ENCOUNTER → 2024-09-09 | Outpatient (CLI) | payer OTHER ==
[~2024-09-09] MED LIST changes: +CARVEDILOL25 M9 PO; +COLCRYS0.6 M1 PO; +DEXT30SU PO; +FAMO20 PO; +FARXIGA10 MG PO; +FERSU300 PO; +FIASP 100100 UNIT/3 SC; -Ferrous Sulfat325 M2 PO; +GABAPENTIN600 MG PO; +LOSA25 PO; +MOUNJARO12.5 MG/0. SC; +Neurontin800 MG PO; +PRAVASTATIN SOD40 MG PO; +SULFAMETHOXAZO1 EACH PO; +TRAM50 PO; +TRAZ100 PO; +Vitamin D1000 UNI1 PO
== END | disposition home or self-care (01) ==
LOC: LAB SHORT 09:24 → LAB 09:24
DX: L97.509 Non-pressure chronic ulcer of other part of unspecified foot with unspecified severity (principal)
CPT/HCPCS: 87070; 87077; 87186; 87205

== ENCOUNTER 2024-10-14 00:13 | Day surgery (SDC) | payer OTHER ==
[~2024-10-14 00:13] MED LIST changes: +BASAGLAR K100 UNIT/1 SC; +CARVEDILOL25 M9 PO; +COLCRYS0.6 M1 PO; +DEXT30SU PO; +FAMO20 PO; +FARXIGA10 MG PO; +FIASP 100100 UNIT/3 SC; +GABAPENTIN600 MG PO; +HUMALOG KW100 UNIT/1 SC; +LOSA25 PO; +MOUNJARO12.5 MG/0. SC; +NYSTATIN100000 U10 MT; +NYSTOP15 GM TOP; +Neurontin800 MG PO; +Norco 5-325 Ta1 EACH PO; +PRAVASTATIN SOD40 MG PO; +SULFAMETHOXAZO1 EACH PO; +TRAM50 PO; +TRAZ100 PO; +VISBIOME 112.51 EACH PO; +Vitamin D1000 UNI1 PO
[2024-10-14] MEDS ORDERED: CefTRIAXone Sodium 2,000 MG in NS 100 ML IV SCH (06:00)
[2024-10-14 11:30] VITALS: BP 1119/70
== END 2024-10-14 12:08 | disposition home or self-care (01) ==
LOC: ATC 00:13
DX: E11.69 Type 2 diabetes mellitus with other specified complication (principal); M86.9 Osteomyelitis, unspecified; G47.33 Obstructive sleep apnea (adult) (pediatric); I13.0 Hypertensive heart and chronic kidney disease with heart failure and stage 1 through stage 4 chronic kidney disease, or unspecified chronic kidney disease; E11.22 Type 2 diabetes mellitus with diabetic chronic kidney disease; N18.9 Chronic kidney disease, unspecified; I50.22 Chronic systolic (congestive) heart failure
CPT/HCPCS: 96365; J0696

== ENCOUNTER 2024-10-15 00:19 | Day surgery (SDC) | payer OTHER ==
[2024-10-15] MEDS ORDERED: CefTRIAXone Sodium 2,000 MG in NS 100 ML IV SCH (01:00)
--- NOTE | 2024-10-15 12:51 | NUR ---
Pt did not show for his appointment in the [facility] this morning.
[2024-10-15 14:12] VITALS: BP 114/68
== END 2024-10-15 14:32 | disposition home or self-care (01) ==
LOC: ATC 00:19
DX: E11.69 Type 2 diabetes mellitus with other specified complication (principal); M86.9 Osteomyelitis, unspecified; M17.12 Unilateral primary osteoarthritis, left knee; G47.33 Obstructive sleep apnea (adult) (pediatric); E11.22 Type 2 diabetes mellitus with diabetic chronic kidney disease; I13.0 Hypertensive heart and chronic kidney disease with heart failure and stage 1 through stage 4 chronic kidney disease, or unspecified chronic kidney disease; N18.9 Chronic kidney disease, unspecified; I50.22 Chronic systolic (congestive) heart failure; M81.0 Age-related osteoporosis without current pathological fracture; Z79.4 Long term (current) use of insulin; Z79.899 Other long term (current) drug therapy; Z89.432 Acquired absence of left foot
CPT/HCPCS: 96365; J0696

== ENCOUNTER 2024-10-16 04:24 | Day surgery (SDC) | payer OTHER ==
[2024-10-16] MEDS ORDERED: CefTRIAXone Sodium 2,000 MG in NS 100 ML IV SCH (06:00)
[2024-10-16 11:31] VITALS: BP 102/67
== END 2024-10-16 11:52 | disposition home or self-care (01) ==
LOC: ATC 04:24
DX: E11.69 Type 2 diabetes mellitus with other specified complication (principal); M86.9 Osteomyelitis, unspecified; M17.12 Unilateral primary osteoarthritis, left knee; E11.22 Type 2 diabetes mellitus with diabetic chronic kidney disease; I13.0 Hypertensive heart and chronic kidney disease with heart failure and stage 1 through stage 4 chronic kidney disease, or unspecified chronic kidney disease; N18.9 Chronic kidney disease, unspecified; I50.22 Chronic systolic (congestive) heart failure; G47.33 Obstructive sleep apnea (adult) (pediatric); M81.0 Age-related osteoporosis without current pathological fracture; Z89.432 Acquired absence of left foot; Z79.899 Other long term (current) drug therapy; Z79.84 Long term (current) use of oral hypoglycemic drugs
CPT/HCPCS: 96365; J0696

== ENCOUNTER 2024-10-17 03:49 | Day surgery (SDC) | payer OTHER ==
[2024-10-17] MEDS ORDERED: CefTRIAXone Sodium 2,000 MG in NS 100 ML IV SCH (06:00)
[2024-10-17 11:36] VITALS: BP 100/67
== END 2024-10-17 12:13 | disposition home or self-care (01) ==
LOC: ATC 03:49
DX: E11.69 Type 2 diabetes mellitus with other specified complication (principal); M86.9 Osteomyelitis, unspecified; I13.0 Hypertensive heart and chronic kidney disease with heart failure and stage 1 through stage 4 chronic kidney disease, or unspecified chronic kidney disease; E11.22 Type 2 diabetes mellitus with diabetic chronic kidney disease; N18.9 Chronic kidney disease, unspecified; I50.22 Chronic systolic (congestive) heart failure; G47.33 Obstructive sleep apnea (adult) (pediatric); Z79.84 Long term (current) use of oral hypoglycemic drugs; Z79.899 Other long term (current) drug therapy
CPT/HCPCS: 96365; J0696